=== PATIENT | male | born 1940 | race Caucasian/White ===

== ENCOUNTER 2019-05-01 19:33 | Inpatient (IN) | payer MEDICARE, BC, SELFPAY ==
[2019-05-01] VITALS (22 sets, daily range): BP systolic 82–131; BP diastolic 49–77; PULSE 89–144; RESP 8–28; TEMP 37; O2SAT 84–96
--- NOTE | 2019-05-01 19:35 | W.ED.GENAD ---
Discharge Plan Disposition Patient Disposition: [facility] INPATIENT Condition: Poor Discharge Details Chief Complaint: GenMedical Clinical Impression: Pneumonia Primary Care Provider: Katia Lyn ED Provider: Lynda Matute Home Meds and New Rx's Prescriptions: No Action lisinopril 2.5 MG tablet 2.5 mg PO DAILY RF: 0 Eliquis 5 MG tablet 5 mg PO 0830,1900 Qty: 60 RF: 3 metoprolol tartrate 25 mg tablet 25 mg PO DAILY RF: 0 docusate sodium [Colace] 100 MG capsule 100 mg PO BID PRN PRNRF: 0 Medical Decision Making Patient is a pleasant 79-year-old gentleman, history of atrial fibrillation, chief complaint of weakness. His reports that he has had a URI for the past week but she noted fever yesterday for the first time. She reports that he has been fatigued and is increased weakness in recent days. However, today he was called to the family member's house and was trying to take something out of the snow. Had to sit on the wet snow secondary to his weakness. States that this is quite atypical. Patient has no history of smoking. Patient denies any feeling of malaise at this point. He denies any headache, dizziness, lightheadedness, chest pain or shortness of breath. Has been having a productive cough. Denies any GI upset, no nausea, vomiting or diarrhea. Denies any recent travel. His does report that she went to [place] recently but she nor any of the people that she was around had traveled to any high risk places for coronavirus and she has been back for the past 2 weeks. patient is anticoagulated for his atrial fibrillation, has been taking his Eliquis as prescribed. States he took his metoprolol this morning. No recent changes medication. Patient describes a slow progression of worsening symptoms over the past several days particularly exacerbated yesterday. EKG was reviewed by Dr. Latham. Patient is in rapid narrow complex A. fib. No underlying evidence of STEMI is been noted. On exam, patient is resting comfortably. He is noted to be tachycardic with a pulse rate of 138. He is slightly hypoxic with a O2 93% on room air. He is not tachypneic, no evidence of work of breathing. He is fairly dry mucous membranes. Irregular irregular rhythm on auscultation but no murmurs, rubs or gallops appreciated. He does have crackles fairly diffuse on auscultation of lung hameed, worse on the left side. Patient is afebrile. Abdomen is benign. No lower extremity edema, no calf tenderness. Plan for chest x-ray, imaging. I am concerned the patient may have pneumonia associated with atrial fibrillation with tachycardia. With his weakness and tachycardia, I am concerned for sepsis. CXR reviewed by radiologist: FINDINGS: Lungs: Well inflated. Patchy increased density overlies posterior costophrenic angle region on lateral view. Minimal interstitial and pulmonary vascular prominence. Pleural space: Unremarkable. No pleural effusion. No pneumothorax. Heart/Mediastinum: Mild cardiomegaly. Vasculature: Vascular calcification. Bones/joints: Degenerative changes. IMPRESSION: 1. Lower lobe infiltrate suspected. Side cannot be determined with certainty. 2. There may be minimal pulmonary vascular congestion. 3. Cardiomegaly. Discussed these findings with the patient and his . 1 g of ceftriaxone and 100 of doxycycline has been ordered. He continues to receive hydration. Initial labs reviewed. Patient has a white count of 16, lactate of 3.9. Remaining labs are pending. Urine is just been sent. is now discussing that the patient has been slightly confused over the past 24 hours. She reports that he has been wandering and is not clear where to he is going. This is likely also associated with his acute infection. There is no nuchal rigidity, rash or evidence of [employer] infection. Denies any headache. Patient has an anion gap of 15.1, creatinine 1.6 EGFR 42. Last creatinine was checked in 2016 that I can see, at that time was 0.93. Patient is feeling improved after IV hydration. Heart rate is down from the 140s to the 1 teens. Patient is eating and drinking here. Consulted with Dr. More regarding admission for sepsis. He agrees to admission. [facility] General Date/Time Provider Initiated Documentation: 05/01/19 19:35. Related Data Home Medications Medication Instructions Recorded Confirmed lisinopril 2.5 mg PO DAILY tab-cap 08/01/15 05/01/19 docusate sodium [Colace] 100 mg PO BID PRN PRN cap 09/04/15 05/01/19 apixaban [Eliquis] 5 mg PO 0830,1900 #60 tab 11/11/16 05/01/19 metoprolol tartrate 25 mg tablet 25 mg PO DAILY 10/09/18 05/01/19 Previous Rx's Medication Instructions Recorded docusate sodium [Colace] 100 mg PO BID PRN PRN cap 09/04/15 apixaban [Eliquis] 5 mg PO 0830,1900 #60 tab 11/11/16 Allergies Allergy/AdvReac Type Severity Reaction Status Date / Time No Known Allergies Allergy Unverified 05/01/19 19:47 PFSH Social History Smoking/Tobacco Use Status: Never Alcohol Intake: never Drug use: Never Substance use type: does not use Do you feel safe at home: Yes Do you feel safe in your relationship?: Yes
[2019-05-01] MEDS: Normal Saline 1,000 ML 1000 ML IV ×2 (19:50→21:19)
[2019-05-01 20:00] LABS: Abs Immature Grans 0.06 k/cumm (0.0-0.09); Absolute Basophil Count 0.02 k/cumm (0.0-0.2); Absolute Monocyte Count 1.78 k/cumm (0.11-0.7); Absolute Neutrophil Count 13.55 k/cumm (1.2-6.7); Basophils % 0.1; Eosinophils % 0.1; HCT 40.6 % (40.0-50.0); HGB 13.8 g/dL (13.5-17.5); Immature Grans % 0.4 %; Mean Corpuscular Hemoglobin 30.2 pg (27.0-33.0); Mean Corpuscular Volume 88.8 fL (80-95); Mean Platelet Volume 10.7 fL (8.0-11.0); Monocytes % 11.1; Neutrophils % 84.3; Platelet Count 193 x1000/uL (130-400); RBC 4.57 m/cumm (4.50-6.00); RBC Distribution Width 13.8 % (11.8-14.1); White Blood Cell Count 16.07 k/cumm (4.4-10.8)
[2019-05-01 20:08] LABS: Absolute Eosinophil Count 0.02 k/cumm (0.0-0.7); Absolute Lymphocyte Count 0.64 k/cumm (1.2-3.4)
--- NOTE | 2019-05-01 20:25 | DI.RAD_ITS ---
EXAM: XR CHEST 2V PA LATERAL CLINICAL HISTORY: weakness, cough, fevers TECHNIQUE: 2D digital imaging was performed. COMPARISON: No exams were available for comparison FINDINGS: MEDIASTINUM: Normal. HEART: Mild cardiomegaly. PULMONARY VASCULATURE: Mild pulmonary vascular prominence. LUNGS: Mild interstitial prominence. Opacity in the posterior aspect of the lung base on the lateral view. This may represent a pneumonia. PLEURAL SPACE: No pleural effusion or pneumothorax. BONE:Degenerative changes. OTHER FINDINGS:Normal. IMPRESSION: 1. Opacity in the lower lobe posteriorly seen on the lateral view. This may represent infiltrate/pne umonia. 2. Mild cardiomegaly. 3. Mild pulmonary venous congestion. DATA REPOSITORY: RADIATION DOSE DELIVERED:
[2019-05-01 20:27] LABS: Diff Comment Agrees w/ Instrument; RBC Morphology Normal
--- NOTE | 2019-05-01 20:41 | DI.VRAD_ITS ---
PROCEDURE INFORMATION: Exam: XR Chest, 2 Views Exam date and time: 05/01/2019 8:26 PM Age: 79 years old Clinical indication: Cough and other: Fever; Patient HX: Cough and fever TECHNIQUE: Imaging protocol: XR of the chest Views: 2 views. COMPARISON: No relevant prior studies available. FINDINGS: Lungs: Well inflated. Patchy increased density overlies posterior costophrenic angle region on lateral view. Minimal interstitial and pulmonary vascular prominence. Pleural space: Unremarkable. No pleural effusion. No pneumothorax. Heart/Mediastinum: Mild cardiomegaly. Vasculature: Vascular calcification. Bones/joints: Degenerative changes. IMPRESSION: 1. Lower lobe infiltrate suspected. Side cannot be determined with certainty. 2. There may be minimal pulmonary vascular congestion. 3. Cardiomegaly. Dictated and Authenticated by: Chaim Wing MD. Ordering:ALBINO Howell MD
[2019-05-01 20:49] LABS: Lactate 3.9 mmol/L (0.6-1.4)
[2019-05-01 20:50] LABS: ALT 16 U/L (16-63); AST 17 U/L (15-37); Albumin 3.6 g/dL (3.4-5.0); Alkaline Phosphatase 66 U/L (46-116); Anion Gap 15.1 mmol/L (3-11); BUN 26 mg/dL (7-18); Bilirubin, Total 1.1 mg/dL (0.2-1.0); CO2 20.9 mmol/L (21.0-32.0); Calcium 8.3 mg/dL (8.5-10.1); Chloride 98 mmol/L (98-107); Estimated GFR 42.01 (mL/min/1.73m2); Glucose 150 mg/dL (74-106); Magnesium 1.8 mg/dL (1.8-2.4); Potassium 4.2 mmol/L (3.5-5.1); Sodium 134 mmol/L (136-145); Total Protein 6.9 g/dL (6.4-8.2)
[2019-05-01 20:56] LABS: Bilirubin Negative (Negative); Blood Small (Negative); Clarity Clear (Clear); Glucose Negative (Negative); Ketones Trace mg/dL (Negative); Leukocyte Esterase Negative (Negative); Nitrite Negative (Negative); Specific Gravity >= 1.030 (1.005-1.025); Urobilinogen 0.2 EU/dL (Up TO 0.2); pH 5.5 (5-8)
[2019-05-01 21:08] LABS: Bacteria Few HPF (Negative); C & S Indicated? No; Casts Negative LPF (Negative); Crystals Negative HPF (Negative); Epithelial Cells Rare HPF (Negative); Mucus Trace (Negative); Other Cells Negative (Negative); RBC 0-2 HPF (0-2); WBC 0-2 HPF (0-5)
[2019-05-01] MEDS: cefTRIAXone 1 GM/50 ML BAG IVPB (21:18)
[2019-05-01 21:43] LABS: Troponin I < 0.05 ng/Ml (<0.06)
--- NOTE | 2019-05-01 21:43 | HPE_ITS ---
Date of service: 05/01/19 Time of Service: 21:43 Assessment and Plan Assessment and plan (1) Pneumonia: Start date: 05/01/19 Status: Acute Assessment and plan: This is a 79-year-old gentleman who had upper respiratory symptoms with production of green sputum and progressive lower extremity weakness prompting him to go to the ED with discovery of a lower lobe pneumonia on x-ray being most likely left lower lobe. Patient will be treated for community-acquired pneumonia and hydrated because of his generalized weakness and MARLENE. He does have a sepsis syndrome without fever and will be placed in ICU for close monitoring. He did have soft blood pressures in the ED but this has recovered with IV hydration. Qualifiers: Laterality: unspecified laterality Lung location: lower lobe of lung Pneumonia type: due to unspecified organism Qualified Code(s): J18.9 - Pneumonia, unspecified organism (2) Sepsis syndrome: Start date: 05/01/19 Status: Acute Assessment and plan: With generalized weakness and MARLENE, continue fluid support with IV hydration and monitoring. He is a full code. (3) MARLENE (acute kidney injury): Start date: 05/01/19 Status: Acute Assessment and plan: Mild with generalized weakness and low blood pressure. IV hydration and monitor labs. He did have some slight hyponatremia as well which may be secondary to his pneumonia process. (4) Atrial fibrillation with controlled ventricular rate: Status: Chronic Assessment and plan: Cardiac monitoring while assessing and treating his acute pneumonia with sepsis syndrome. Trend troponins which have been negative thus far. Continue outpatient medications with good rate control presently on metoprolol. History of Present Illness History of Present Illness Chief Complaint: Weakness in legs with coughing for 4 to 5 days Narrative: This is a generally healthy 79-year-old gentleman who was walking to his neighbors home when he felt extremely weak in the legs and fell and the slushy snow. He did not have any significant injuries with this fall outside and was not falling inside. He reported to the ED because of progressive weakness in his lower extremities after having cold-like symptoms with a cough for 4 to 5 days with production of green sputum. In the ED he was found to have a lower lobe pneumonia and was started on IV antibiotics for a community-acquired pneumonia. Also he was admitted for IV hydration with some mild hyponatremia and dehydration with his creatinine slightly elevated from baseline. Patient blood pressure was slightly low with a systolic below 100 and he was placed in the ICU because of a sepsis syndrome including tachycardia with tachypnea, elevated white blood cell count and soft blood pressures. He did not have any significant fever in the ED or reported at home. He had no other complaints other than his cough and generalized weakness especially in the lower extremities. He had no GI complaints and no increased peripheral edema. Is fairly physically active and was taking care of his neighbors home when he fell of the slushy snow. Review of Systems Narrative: 13 point review of systems otherwise unrevealing or stable. [facility] Medical History (Updated 05/01/19 @ 21:51 by Sherman Crump) MARLENE (acute kidney injury) (Acute) Atrial fibrillation with controlled ventricular rate (Chronic) Osteoarthritis of left hip (Inactive) Surgical History (Updated 05/02/19 @ 06:47 by Sherman Crump) H/O total hip arthroplasty (Acute) Social History Smoking/Tobacco Use Status: Never Alcohol Intake: never Drug use: Never Substance use type: does not use Do you feel safe at home: Yes Do you feel safe in your relationship?: Yes Meds Home Medications and Allergies Home Medications Medication Instructions Recorded Confirmed Type lisinopril 2.5 mg PO DAILY tab-cap 08/01/15 05/01/19 History docusate sodium [Colace] 100 mg PO BID PRN PRN cap 09/04/15 05/01/19 Rx apixaban [Eliquis] 5 mg PO 0830,1900 #60 tab 11/11/16 05/01/19 Rx metoprolol tartrate 25 mg tablet 25 mg PO DAILY 10/09/18 05/01/19 History Allergies Allergy/AdvReac Type Severity Reaction Status Date / Time No Known Allergies Allergy Unverified 05/01/19 19:47 Exam Narrative Exam Narrative: General: Patient appears appropriate for age in no acute distress and alert and oriented to person place at least. He is lean. HEENT: Normocephalic, face atraumatic. Eyes with pupils equal and reactive light symmetrically and extraocular movement intact. Sclera anicteric. Oropharynx with slightly dry oral mucosa. External ears normal. Neck: Supple without JVD. Back: Stooped posture with no CVA tenderness. Lungs: Coarse inspiratory crackles left base more than right with bronchovesicular breath sounds diffusely, fair aeration and no increased expiratory phase or expiratory wheeze. No dullness to percussion. Heart: Regular rate and rhythm with no appreciable murmurs or gallops. No rubs. Chest: Symmetric movement with inspiration and no tenderness to palpation. Abdomen: Scaphoid contour, soft and nontender to palpation with no palpable hepatosplenomegaly. Bowel sounds positive in all quadrants. Genitalia/rectal: Exam deferred. Extremities: Without clubbing, cyanosis or pitting edema. Good capillary refill lower extremities. Diffuse mild arthritic changes with some muscle atrophy over lower extremities. Skin: Normal color, warm and dry. Actinic changes over sun exposed areas. No rashes noted. Neuro: Cranial nerves II through XII grossly intact, no focalizing motor deficits and no Babinski's. Psych: Normal mood and thought processes, remote memory intact and recent memory grossly intact. Results Imaging Imaging Studies: Exam: XR Chest, 2 Views Exam date and time: 05/01/2019 8:26 PM Age: 79 years old Clinical indication: Cough and other: Fever; Patient HX: Cough and fever TECHNIQUE: Imaging protocol: XR of the chest Views: 2 views. COMPARISON: No relevant prior studies available. FINDINGS: Lungs: Well inflated. Patchy increased density overlies posterior costophrenic angle region on lateral view. Minimal interstitial and pulmonary vascular prominence. Pleural space: Unremarkable. No pleural effusion. No pneumothorax. Heart/Mediastinum: Mild cardiomegaly. Vasculature: Vascular calcification. Bones/joints: Degenerative changes. IMPRESSION: 1. Lower lobe infiltrate suspected. Side cannot be determined with certainty. 2. There may be minimal pulmonary vascular congestion. 3. Cardiomegaly. Dictated and Authenticated by: Chaim Wing MD. Labs Result diagrams: 05/01/19 19:52 05/01/19 19:52 Labs: Laboratory Results - last 24 hr 05/01/19 05/01/19 05/01/19 19:52 19:52 19:52 WBC 16.07 H RBC 4.57 Hgb 13.8 Hct 40.6 MCV 88.8 MCH 30.2 MCHC 34.0 RDW 13.8 Plt Count 193 MPV 10.7 Immature Gran % 0.4 Neutrophils % 84.3 Lymphocytes % 4.0 Monocytes % 11.1 Eosinophils % 0.1 Basophils % 0.1 Absolute Neutrophils 13.55 H Absolute Lymphocytes 0.64 L Absolute Monocytes 1.78 H Absolute Eosinophils 0.02 Absolute Basophils 0.02 Differential Comment Agrees w/ instrument RBC Morphology Normal Sodium 134 L Potassium 4.2 Chloride 98 Carbon Dioxide 20.9 L Anion Gap 15.1 H BUN 26 H Creatinine 1.60 H Estimated GFR/1.73 m2 42.01 Glucose 150 H Lactate 3.9 H* Calcium 8.3 L Magnesium 1.8 Total Bilirubin 1.1 H AST 17 ALT 16 Alkaline Phosphatase 66 Total Protein 6.9 Albumin 3.6 Urine Color Urine Clarity Urine pH Ur Specific [place] Urine Protein Urine Ketones Urine Blood Urine Nitrite Urine Bilirubin Urine Urobilinogen Ur Leukocyte Esterase Urine RBC Urine WBC Ur Epithelial Cells Urine Crystals Urine Bacteria Urine Casts Urine Mucus Urine Other Ur Culture Indicated? Urine Glucose 05/01/19 20:47 WBC RBC Hgb Hct MCV MCH MCHC RDW Plt Count MPV Immature Gran % Neutrophils % Lymphocytes % Monocytes % Eosinophils % Basophils % Absolute Neutrophils Absolute Lymphocytes Absolute Monocytes Absolute Eosinophils Absolute Basophils Differential Comment RBC Morphology Sodium Potassium Chloride Carbon Dioxide Anion Gap BUN Creatinine Estimated GFR/1.73 m2 Glucose Lactate Calcium Magnesium Total Bilirubin AST ALT Alkaline Phosphatase Total Protein Albumin Urine Color Yellow Urine Clarity Clear Urine pH 5.5 Ur Specific [place] >= 1.030 H Urine Protein 100 H Urine Ketones Trace H Urine Blood Small H Urine Nitrite Negative Urine Bilirubin Negative Urine Urobilinogen 0.2 Ur Leukocyte Esterase Negative Urine RBC 0-2 Urine WBC 0-2 Ur Epithelial Cells Rare Urine Crystals Negative Urine Bacteria Few Urine Casts Negative Urine Mucus Trace Urine Other Negative Ur Culture Indicated? No Urine Glucose Negative Last Vital Signs Temp 37.0 C 05/01/19 19:40 Pulse 104 H 05/01/19 21:01 Resp 14 05/01/19 21:01 BP 104/62 05/01/19 21:01 Pulse Ox 92 L 05/01/19 21:01
[2019-05-01] MEDS: DOXYCYCLINE 100 MG in Normal Saline 100 ML IVPB (21:49)
--- NOTE | 2019-05-01 22:23 | NUR.NOTE ---
Nursing Note: Spoke with irrigation supervisor and hospitalist about pt's change in condition (i.e. decreased BP, increased oxygen demand, RR and limited response to IV fluid boluses in HR). Hospitalist agrees to to redirect admission to ICU. Order to be changed by hospitalist. MS aware, irrigation supervisor aware.
[2019-05-01 23:11] LABS: Troponin I < 0.05 ng/Ml (<0.06)
[2019-05-01 23:45] LABS: Bilirubin Negative (Negative); Blood Trace-lysed (Negative); Clarity Clear (Clear); Glucose Negative (Negative); Ketones Negative (Negative); Leukocyte Esterase Negative (Negative); Nitrite Negative (Negative)
[2019-05-02] VITALS (128 sets, daily range): BP systolic 94–140; BP diastolic 55–104; PULSE 71–105; RESP 6–26; TEMP 36.3–37.1; O2SAT 84–100
[2019-05-02] LABS: Bacteria Negative HPF (Negative); C & S Indicated? No; Casts 0-2 Hyaline LPF (Negative); Crystals Negative HPF (Negative); Epithelial Cells Negative HPF (Negative); Mucus Negative (Negative); Other Cells Negative (Negative); RBC 0-2 HPF (0-2); WBC 0-2 HPF (0-5)
[2019-05-02] MEDS: cefTRIAXone 1 GM/50 ML BAG 100 GM (00:48)
[2019-05-02] MEDS: Normal Saline 1,000 ML 250 ML IV ×3 (00:49→09:18)
[2019-05-02 07:11] LABS: HCT 35.7 % (40.0-50.0); HGB 11.8 g/dL (13.5-17.5); Mean Corp. HGB Concentration 33.1 g/dL (32.0-36.0); Mean Corpuscular Hemoglobin 30.1 pg (27.0-33.0); Mean Corpuscular Volume 91.1 fL (80-95); Mean Platelet Volume 11.1 fL (8.0-11.0); Platelet Count 179 x1000/uL (130-400); RBC 3.92 m/cumm (4.50-6.00); White Blood Cell Count 10.77 k/cumm (4.4-10.8)
[2019-05-02 07:40] LABS: ALT 12 U/L (16-63); AST 18 U/L (15-37); Albumin 2.7 g/dL (3.4-5.0); Alkaline Phosphatase 53 U/L (46-116); BUN 19 mg/dL (7-18); Bilirubin, Total 0.6 mg/dL (0.2-1.0); CREATININE 0.98 mg/dL (0.70-1.30); Calcium 7.5 mg/dL (8.5-10.1); Chloride 107 mmol/L (98-107); Glucose 94 mg/dL (74-106); Potassium 3.9 mmol/L (3.5-5.1); Sodium 138 mmol/L (136-145); Total Protein 5.5 g/dL (6.4-8.2)
[2019-05-02 08:06] LABS: Troponin I < 0.06 ng/Ml (<0.06)
[2019-05-02 08:24] LABS: Lactate 0.6 mmol/L (0.6-1.4)
--- NOTE | 2019-05-02 08:40 | PGE_ITS ---
Date of Service Date of service: 05/02/19 Time of Service: 15:42 Assessment and Plan Assessment and plan (1) Sepsis syndrome: Status: Acute Assessment and plan: Due to PNA, present on admission. Improved markedly with IVF, doxycycline, ceftriaxone. No longer requires IVF. Continue empiric abx, await blood culture results. Transfer out of ICU. (2) Pneumonia: Status: Acute Assessment and plan: CAP, present on admission. As above. Qualifiers: Pneumonia type: due to unspecified organism Laterality: unspecified laterality Lung location: lower lobe of lung Qualified Code(s): J18.9 - Pneumonia, unspecified organism (3) MARLENE (acute kidney injury): Status: Resolved Assessment and plan: In setting of sepsis. Resolved with IVF. (4) Atrial fibrillation with controlled ventricular rate: Status: Chronic Assessment and plan: Rate is now controlled. Continue eliquis for anticoagulation. (5) Fluid overload: Status: Acute Assessment and plan: Iatrogenic - will give one dose of PO lasix 20 mg. (6) Lactic acidosis: Status: Resolved Assessment and plan: In setting of sepsis. Resolved with IVF/abx. (7) DVT prophylaxis: Status: Acute Assessment and plan: On therapeutic anticoagulation with eliquis (8) Discharge planning issues: Status: Acute Assessment and plan: Full code. Transfer out of ICU. Expect discharge home tomorrow if blood cx negative. Subjective Subjective Interval history since last seen: Feels much better. Denies dizziness, chest pain, shortness of breath, reports a frog in my throat. Denies n/v. Rhonchi/coarse throughout. Crackles at B bases noted by nursing - IVF stopped in am. No fevers. Flu neg. 96-97% on RA. BP/HR good - will be transferred out of ICU. Exam Narrative Exam Narrative: General: Very pleasant middle-aged male, laying comfortably in bed, A&Ox3 HEENT: EOMI, MMM Heart: Irregularly irregular rhythm, no m/r/g Lungs: coarse breath sounds B; crackles at B bases Abdomen: soft, nontender, nondistended Extremities: +1 edema BLE's, no c/c. Objective Objective Clinical Data: Abnormal lab results 05/01/19 05/01/19 05/01/19 Range/Units 19:52 19:52 19:52 WBC 16.07 H (4.4-10.8) k/cumm RBC (4.50-6.00) m/cumm Hgb (13.5-17.5) g/dL Hct (40.0-50.0) % MPV (8.0-11.0) fL Absolute Neutrophils 13.55 H (1.2-6.7) k/cumm Absolute Lymphocytes 0.64 L (1.2-3.4) k/cumm Absolute Monocytes 1.78 H (0.11-0.7) k/cumm Sodium 134 L (136-145) mmol/L Carbon Dioxide 20.9 L (21.0-32.0) mmol/L Anion Gap 15.1 H (3-11) mmol/L BUN 26 H (7-18) mg/dL Creatinine 1.60 H (0.70-1.30) mg/dL Glucose 150 H (74-106) mg/dL Lactate 3.9 H* (0.6-1.4) mmol/L Calcium 8.3 L (8.5-10.1) mg/dL Total Bilirubin 1.1 H (0.2-1.0) mg/dL ALT (16-63) U/L Total Protein (6.4-8.2) g/dL Albumin (3.4-5.0) g/dL Ur Specific [place] (1.005-1.025) Urine Protein (Negative) mg/dL Urine Ketones (Negative) mg/dL Urine Blood (Negative) Urine Urobilinogen (Up TO 0.2) EU/dL 05/01/19 05/01/19 05/02/19 Range/Units 20:47 23:31 05:30 WBC (4.4-10.8) k/cumm RBC (4.50-6.00) m/cumm Hgb (13.5-17.5) g/dL Hct (40.0-50.0) % MPV (8.0-11.0) fL Absolute Neutrophils (1.2-6.7) k/cumm Absolute Lymphocytes (1.2-3.4) k/cumm Absolute Monocytes (0.11-0.7) k/cumm Sodium (136-145) mmol/L Carbon Dioxide (21.0-32.0) mmol/L Anion Gap (3-11) mmol/L BUN 19 H D (7-18) mg/dL Creatinine (0.70-1.30) mg/dL Glucose (74-106) mg/dL Lactate (0.6-1.4) mmol/L Calcium 7.5 L (8.5-10.1) mg/dL Total Bilirubin (0.2-1.0) mg/dL ALT 12 L (16-63) U/L Total Protein 5.5 L (6.4-8.2) g/dL Albumin 2.7 L (3.4-5.0) g/dL Ur Specific [place] >= 1.030 H (1.005-1.025) Urine Protein 100 H 30 H (Negative) mg/dL Urine Ketones Trace H (Negative) mg/dL Urine Blood Small H Trace-lysed H (Negative) Urine Urobilinogen 1.0 H (Up TO 0.2) EU/dL 05/02/19 Range/Units 05:30 WBC (4.4-10.8) k/cumm RBC 3.92 L (4.50-6.00) m/cumm Hgb 11.8 L (13.5-17.5) g/dL Hct 35.7 L (40.0-50.0) % MPV 11.1 H (8.0-11.0) fL Absolute Neutrophils (1.2-6.7) k/cumm Absolute Lymphocytes (1.2-3.4) k/cumm Absolute Monocytes (0.11-0.7) k/cumm Sodium (136-145) mmol/L Carbon Dioxide (21.0-32.0) mmol/L Anion Gap (3-11) mmol/L BUN (7-18) mg/dL Creatinine (0.70-1.30) mg/dL Glucose (74-106) mg/dL Lactate (0.6-1.4) mmol/L Calcium (8.5-10.1) mg/dL Total Bilirubin (0.2-1.0) mg/dL ALT (16-63) U/L Total Protein (6.4-8.2) g/dL Albumin (3.4-5.0) g/dL Ur Specific [place] (1.005-1.025) Urine Protein (Negative) mg/dL Urine Ketones (Negative) mg/dL Urine Blood (Negative) Urine Urobilinogen (Up TO 0.2) EU/dL Vital Signs Temperature 36.4 C L 05/02/19 04:10 Temperature Source Temporal Artery Scan 05/02/19 04:10 Pulse 78 05/02/19 06:31 Pulse 95 H 05/02/19 06:31 Respiratory Rate 16 05/02/19 06:31 Respiratory Effort 05/02/19 04:10 Respiratory Depth Normal 05/02/19 04:10 Respiratory Pattern Normal 05/02/19 04:10 Blood Pressure 120/71 05/02/19 06:31 Blood Pressure Mean 82 05/02/19 06:31 Blood Pressure Position Sitting 05/01/19 19:40 Pulse Oximetry 95 05/02/19 06:10 Oxygen Delivery Method Nasal Cannula 05/01/19 22:32 Oxygen Flow Rate 2 05/01/19 22:32 Pain Level 0 05/02/19 04:10 Intake & Output 05/01/19 05/01/19 05/02/19 11:59 23:59 11:59 Intake Total 2630 / 2630 1000 / 1000 Output Total 190 / 190 700 / 700 Balance 2440 / 2440 300 / 300 Weight 86.183 kg 86.6 kg Intake: IV 2150 / 2150 1000 / 1000 Oral 480 / 480 Output: Urine 190 / 190 700 / 700 Other: Urine Color Light Maria Fernanda Urine Appearance Clear # Voids 1 Laboratory Results WBC 10.77 k/cumm (4.4-10.8) D 05/02/19 05:30 RBC 3.92 m/cumm (4.50-6.00) L 05/02/19 05:30 Hgb 11.8 g/dL (13.5-17.5) L 05/02/19 05:30 Hct 35.7 % (40.0-50.0) L 05/02/19 05:30 MCV 91.1 fL (80-95) 05/02/19 05:30 MCH 30.1 pg (27.0-33.0) 05/02/19 05:30 MCHC 33.1 g/dL (32.0-36.0) 05/02/19 05:30 RDW 14.0 % (11.8-14.1) 05/02/19 05:30 Plt Count 179 x1000/uL (130-400) 05/02/19 05:30 MPV 11.1 fL (8.0-11.0) H 05/02/19 05:30 Immature Gran % 0.4 % 05/01/19 19:52 Neutrophils % 84.3 05/01/19 19:52 Lymphocytes % 4.0 05/01/19 19:52 Monocytes % 11.1 05/01/19 19:52 Eosinophils % 0.1 05/01/19 19:52 Basophils % 0.1 05/01/19 19:52 Absolute Neutrophils 13.55 k/cumm (1.2-6.7) H 05/01/19 19:52 Absolute Lymphocytes 0.64 k/cumm (1.2-3.4) L 05/01/19 19:52 Absolute Monocytes 1.78 k/cumm (0.11-0.7) H 05/01/19 19:52 Absolute Eosinophils 0.02 k/cumm (0.0-0.7) 05/01/19 19:52 Absolute Basophils 0.02 k/cumm (0.0-0.2) 05/01/19 19:52 Differential Comment Agrees w/ instrument 05/01/19 19:52 RBC Morphology Normal 05/01/19 19:52 Sodium 138 mmol/L (136-145) 05/02/19 05:30 Potassium 3.9 mmol/L (3.5-5.1) 05/02/19 05:30 Chloride 107 mmol/L (98-107) 05/02/19 05:30 Carbon Dioxide 25.0 mmol/L (21.0-32.0) 05/02/19 05:30 Anion Gap 6.0 mmol/L (3-11) 05/02/19 05:30 BUN 19 mg/dL (7-18) H D 05/02/19 05:30 Creatinine 0.98 mg/dL (0.70-1.30) D 05/02/19 05:30 Estimated GFR/1.73 m2 >= 60.00 (mL/min/1.73m2) 05/02/19 05:30 Glucose 94 mg/dL (74-106) D 05/02/19 05:30 Lactate 0.6 mmol/L (0.6-1.4) 05/02/19 08:17 Calcium 7.5 mg/dL (8.5-10.1) L 05/02/19 05:30 Magnesium 1.8 mg/dL (1.8-2.4) 05/01/19 19:52 Total Bilirubin 0.6 mg/dL (0.2-1.0) 05/02/19 05:30 AST 18 U/L (15-37) 05/02/19 05:30 ALT 12 U/L (16-63) L 05/02/19 05:30 Alkaline Phosphatase 53 U/L (46-116) 05/02/19 05:30 Troponin I < 0.06 ng/Ml (<0.06) 05/02/19 05:30 Total Protein 5.5 g/dL (6.4-8.2) L 05/02/19 05:30 Albumin 2.7 g/dL (3.4-5.0) L 05/02/19 05:30 TSH 1.80 uIU/mL (0.36-3.74) 05/02/19 05:30 Urine Color Yellow (Yellow) 05/01/19 23:31 Urine Clarity Clear (Clear) 05/01/19 23:31 Urine pH 6.0 (5-8) 05/01/19 23:31 Ur Specific [place] 1.020 (1.005-1.025) 05/01/19 23:31 Urine Protein 30 mg/dL (Negative) H 05/01/19 23:31 Urine Ketones Negative mg/dL (Negative) 05/01/19 23:31 Urine Blood Trace-lysed (Negative) H 05/01/19 23:31 Urine Nitrite Negative (Negative) 05/01/19 23:31 Urine Bilirubin Negative (Negative) 05/01/19 23:31 Urine Urobilinogen 1.0 EU/dL (Up TO 0.2) H 05/01/19 23:31 Ur Leukocyte Esterase Negative (Negative) 05/01/19 23:31 Urine RBC 0-2 HPF (0-2) 05/01/19 23:31 Urine WBC 0-2 HPF (0-5) 05/01/19 23:31 Ur Epithelial Cells Negative HPF (Negative) 05/01/19 23:31 Urine Crystals Negative HPF (Negative) 05/01/19 23:31 Urine Bacteria Negative HPF (Negative) 05/01/19 23:31 Urine Casts 0-2 hyaline LPF (Negative) 05/01/19 23:31 Urine Mucus Negative (Negative) 05/01/19 23:31 Urine Other Negative (Negative) 05/01/19 23:31 Ur Culture Indicated? No 05/01/19 23:31 Urine Glucose Negative mg/dL (Negative) 05/01/19 23:31
[2019-05-02] MEDS: Metoprolol 25 MG TAB 12.5 MG PO ×2 (08:59→19:39)
[2019-05-02] MEDS: Lisinopril 5 MG TAB 2.5 MG PO (09:00)
[2019-05-02] MEDS: Apixaban 5 MG TAB PO ×2 (09:00→19:39)
[2019-05-02 09:02] LABS: Procalcitonin 0.7 ng/mL
--- NOTE | 2019-05-02 10:09 | PDOC.CMIN ---
- If Service Date Differs Date of service: 05/02/19 Time of Service: 10:09 Care Management Initial Assess REASON FOR HOSPITALIZATION:: Pneumonia PAST MEDICAL HISTORY/PAST SURGICAL HISTORY:: Medical History (Updated 05/01/19 @ 21:51 by Sherman Crump). MARLENE (acute kidney injury) (Acute). Atrial fibrillation with controlled ventricular rate (Chronic). Osteoarthritis of left hip (Inactive). Surgical History (Updated 05/02/19 @ 06:47 by Sherman Crump). H/O total hip arthroplasty (Acute) PREVIOUS FUNCTIONAL STATUS/SOCIAL/FAMILY SUPPORTS:: Darci lives in [place] in [place] with his Kay. They have one daughter who works in [employer]. 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 He is independent at baseline and has been working on fixing up his home. CURRENT FUNCTIONAL STATUS:: Darci was lying in bed when CM met with him. He was pleasant and readily engaged in conversation with CM. Darci shared stories about his travels and career. He states he is feeling a bit better but is very tired today. ADVANCE DIRECTIVES:: None on file, however has completed them. His will bring in a copy. Has patient been provided with information about the portal?: Yes CODE STATUS:: Full Code INSURANCE COVERAGE / FINANCIAL ISSUES:: Medicare. BS CURRENT HOME/COMMUNITY SERVICES/EQUIPMENT:: none PRIMARY CARE PHYSICIAN:: Katia Lyn POTENTIAL DISCHARGE NEEDS:: Follow up with PCP and discharge plan of care PATIENT/FAMILY EDUCATION NEEDS:: Discharge plan, limitations, follow up plan, Ask Me Three. TRANSPORTATION:: via private vehicle with family PLAN:: Darci will likely discharge home with no new services. He will follow up with his PCP and discharge plan of care. Darci will transport via private vehicle with his . CM will continue to support patient, family and discharge planning needs.
[2019-05-02] MEDS: DOXYCYCLINE 100 MG in Normal Saline 100 ML IVPB ×2 (11:01→22:41)
[2019-05-02] MEDS: Normal Saline Flush 10 ML SYR IVP (11:04)
--- NOTE | 2019-05-02 13:45 | IN_ITS ---
Date of service: 05/02/19 Time of Service: 09:30 PT Notes Visit Reasons: LOWER LOBE PNEUMONIA WITH SEPSIS SYNROME Physical Therapy Inpatient Initial Evaluation Date: 05/02/2019 Referring Doctor: Juana Sanabria M.D. PT Orders: PT CONSULT: Limited Ability Precautions: Fall. Standard. Activity as tolerated. Patient Profile/Admitting Diagnosis: Pt is a 79-year-old man that presented to the ER on 05/01/2019 and admitted to the hospital with diagnoses of pneumonia, sepsis, and acute kidney injury. PMHX: Social History/Home Situation: Pt lives at home with his in [place]. No stairs to enter the home. Reports there are 10-12 stairs to get to the second floor where the bedroom is. Equipment Owned/DME: none Subjective: Pt reports that he feels much better today. Notes that he has not had any other falls in the past 12 months. Objective: General Observation: Telemonitor in place. IV line in RUE. Mental Status: alert and oriented x 4 Pain: 0/10 Vital Signs: Follow ambulation HR 92 bpm, RR 24 breaths/minute ROM: Right Upper Extremity: Shoulder Flexion WFL. Shoulder abduction WFL. Elbow flexion WFL. Wrist flexion WFL. Opening and closing of hand WFL. Left Upper Extremity: Shoulder Flexion WFL. Shoulder abduction WFL. Elbow flexion WFL. Wrist flexion WFL. Opening and closing of hand WFL. Right Lower Extremity: Hip flexion WFL. Hip abduction WFL. Knee flexion WFL. Ankle dorsiflexion WFL. Ankle plantarflexion WFL. Left Lower Extremity: Hip flexion WFL. Hip abduction WFL. Knee flexion WFL. Ankle dorsiflexion WFL. Ankle plantarflexion WFL. Strength: Right Upper Extremity: Shoulder flexors 3-/5. Shoulder abductors 3-/5. Elbow flexors 5/5. Elbow extensors 5/5. Risk Control Product Liability Director strong. Left Upper Extremity: Shoulder flexors 5/5. Shoulder abductors 5/5. Elbow flexors 5/5. Elbow extensors 5/5. Risk Control Product Liability Director strong. Right Lower Extremity: Hip flexors 4+/5. Hip abductors 5/5. Knee flexors 4+/5. Knee extensors 5/5. Ankle dorsiflexors 5/5. Ankle plantarflexors 5/5. Left Lower Extremity: Hip flexors 4+/5. Hip abductors 5/5. Knee flexors 4+/5. Knee extensors 5/5. Ankle dorsiflexors 5/5. Ankle plantarflexors 5/5. Reflexes: Patellar 2+ bilaterally, Achilles 2+ bilaterally Sensation: Intact as to pain and pressure on bilateral lower extremities. Bed Mobility/Transfers: Rolling independent Supine to sit independent Sit to supine independent Sit to stand SBA Stand to sit SBA Bed to chair CGA Chair to bed CGA Gait: Pt was able to ambulate 260 feet, full weightbearing, without the use of a front-wheeled walker. CGA provided by PT student. Reciprocal gait pattern. No complaints of chest pain, shortness of breath, dizziness. Stairs: Pt was able to ascend and descend 12 steps with unilateral upper extremity support on the right. SBA provided by PT and PT student. Reciprocal, [id number] gait pattern. No dizziness, loss of balance, SOB. Balance: Static Sitting: Normal Dynamic Sitting: Normal Static Standing: Good Dynamic Standing: Fair Special Tests: Mobility Limitations Standardized Measure [facility]-PAC 6 clicks Basic Mobility Inpatient Short Form: Raw Score: 24 CMS Score: 0% deficit Four-stage balance test: Able to perform narrow base of support, semi-tandem, and tandem stance for greater than 10 seconds. Able to maintain single leg stance on the right for ten seconds, but only able to maintain stance on left for 3 seconds. Informed Consent/Education: Patient instructed in purpose of PT consult and plan of care. Assessment: Pt is a 79-year-old man that presented to the ER on 05/01/2019 and admitted to the hospital with diagnoses of pneumonia, sepsis, and acute kidney injury. Pt presents with impairment level findings and functional limitations as listed below secondary to acute illness. He demonstrated minimal fall risk with the four-stage balance test. Appears to be stable with ambulation and stair negotiation as he does not require an assistive device and no complaints of increase shortness of breath or weakness. He does not require skilled physical therapy at this time however would benefit from regular supervised ambulation while in the hospital setting. Patient presents with clinical signs and symptoms consistent with current/admitting diagnoses that have resulted to mobility limitations and generalized weakness as demonstrated by the following impairment level findings: 1. Impaired standing balance 2. Impaired activity tolerance Impairments are contributing to the following functional limitations: 1. Increased dependence with transfers 2. Increase completion time for mobility ADL performance Patient is [place] 27525 moderate complexity based on the following: History: Pt presents with impairment level findings and functional limitations as listed above. AM-PAC raw score of 24 with deficit of 0%. Examination: Demonstrable impairment in strength, balance, and range of motion with underlying impairments and functional limitations as documented above Presentation: Evolving Decision Makin moderate complexity Goals: N/A. Physical therapy evaluation only. DISCHARGE RECOMMENDATIONS: Discharge to home when medically cleared. Pt would benefit from regular ambulation with supervision while in the hospital setting. TREATMENT CODE/TIME: 20707 x 33 minutes beginning at 9:15 A.M. Thank you very much for this referral. Billy Ulrich, SPT Doctor of Physical Therapy Student [facility] Supervision provided by Michael [facility], PT [facility] [place], [place]
--- NOTE | 2019-05-02 15:20 | W.NUTCONSULT ---
Date of service: 05/02/19 Time of Service: 15:20 Nutritional Consult ASSESSMENT: 79 year old male admitted with PNA, sepsis and MARLENE. BMI wnl for age. Following Heart Healthy Diet with adequate intake. Not considered at nutritional risk at this time. MONITORING AND EVALUATION: po intake, labs, weights monitored daily Time Spent in Nutritional Counseling and Treatment: 0 time spent face to face
[2019-05-02] MEDS: Furosemide 20 MG TAB PO (17:00)
--- NOTE | 2019-05-02 19:30 | NUR.NOTE ---
Nursing Note:1715- pt transferred from icu to [facility] by ambulation with all belongings. cpap in room and VSS. pt eating dinner with .
[2019-05-02] MEDS: cefTRIAXone 2 GM/50 ML BAG IVPB (22:10)
[2019-05-03 00:29] VITALS: BP 152/87; PULSE 91; RESP 17; TEMP 36.8; O2SAT 97
[2019-05-03 03:48] VITALS: BP 152/83; PULSE 81; RESP 17; TEMP 37.1; O2SAT 97
[2019-05-03 07:20] LABS: Abs Immature Grans 0.02 k/cumm (0.0-0.09); Absolute Basophil Count 0.02 k/cumm (0.0-0.2); Absolute Eosinophil Count 0.12 k/cumm (0.0-0.7); Absolute Monocyte Count 1.07 k/cumm (0.11-0.7); Absolute Neutrophil Count 5.89 k/cumm (1.2-6.7); Basophils % 0.2; Eosinophils % 1.5; HCT 39.9 % (40.0-50.0); HGB 13.1 g/dL (13.5-17.5); Immature Grans % 0.2 %; Lymphocytes % 12.3; Mean Corp. HGB Concentration 32.8 g/dL (32.0-36.0); Mean Corpuscular Hemoglobin 29.5 pg (27.0-33.0); Mean Corpuscular Volume 89.9 fL (80-95); Monocytes % 13.2; Neutrophils % 72.6; Platelet Count 218 x1000/uL (130-400); RBC 4.44 m/cumm (4.50-6.00); White Blood Cell Count 8.12 k/cumm (4.4-10.8)
[2019-05-03 07:27] LABS: Anion Gap 8.2 mmol/L (3-11); BUN 13 mg/dL (7-18); CO2 25.8 mmol/L (21.0-32.0); CREATININE 0.98 mg/dL (0.70-1.30); Calcium 8.1 mg/dL (8.5-10.1); Chloride 105 mmol/L (98-107); Glucose 93 mg/dL (74-106); Magnesium 1.9 mg/dL (1.8-2.4); Sodium 139 mmol/L (136-145)
[2019-05-03 07:40] VITALS: BP 149/92; PULSE 91; RESP 17; TEMP 37; O2SAT 97
[2019-05-03] MEDS: Metoprolol 25 MG TAB 12.5 MG PO (08:45)
[2019-05-03] MEDS: Apixaban 5 MG TAB PO (08:51)
[2019-05-03] MEDS: Normal Saline Flush 10 ML SYR IVP (08:51)
[2019-05-03] MEDS: Lisinopril 5 MG TAB 2.5 MG PO (08:51)
[2019-05-03] MEDS: Doxycycline Hyclate 100 MG CAP PO (11:01)
[2019-05-03 11:30] VITALS: BP 146/89; PULSE 76; RESP 17; TEMP 36.9; O2SAT 98
--- NOTE | 2019-05-03 12:51 | W.PM.DS.N ---
Date of service: 05/03/19 Time of Service: 12:51 DS: Diagnosis Discharge Diagnosis (1) Sepsis syndrome: Status: Acute (2) Pneumonia: Status: Acute (3) MARLENE (acute kidney injury): Status: Resolved (4) Atrial fibrillation with controlled ventricular rate: Status: Chronic (5) Fluid overload: Status: Acute (6) Lactic acidosis: Status: Resolved Discharge Plan Disposition Patient Disposition: HOME Condition: Improving Discharge Details Chief Complaint: GenMedical Clinical Impression: Pneumonia Reason For Visit: LOWER LOBE PNEUMONIA WITH SEPSIS SYNROME Admit Date/Time: 05/01/19 21:27 Admit Provider: Sherman Crump Attending Provider: Sherman Crump Primary Care Provider: Katia Lyn ED Provider: Lynda Matute [facility] Course Hospital Course: This is a generally healthy 79-year-old gentleman who was walking to his neighbors home when he felt extremely weak in the legs and fell and the slushy snow. He did not have any significant injuries with this fall outside and was not falling inside. He reported to the ED because of progressive weakness in his lower extremities after having cold-like symptoms with a cough for 4 to 5 days with production of green sputum. In the ED he was found to have a lower lobe pneumonia and was started on IV antibiotics for a community-acquired pneumonia. Also he was admitted for IV hydration with some mild hyponatremia and dehydration with his creatinine slightly elevated from baseline. Patient blood pressure was slightly low with a systolic below 100 and he was placed in the ICU because of a sepsis syndrome including tachycardia with tachypnea, elevated white blood cell count and soft blood pressures. He did not have any significant fever in the ED or reported at home. He had no other complaints other than his cough and generalized weakness especially in the lower extremities. He had no GI complaints and no increased peripheral edema. Is fairly physically active and was taking care of his neighbors home when he fell of the slushy snow. Home Meds and New Rx's Prescriptions: New cefpodoxime 200 mg tablet 200 mg PO BID Qty: 10 RF: 0 doxycycline hyclate 100 mg capsule 100 mg PO BID Qty: 10 RF: 0 Continued lisinopril 2.5 MG tablet 2.5 mg PO DAILY RF: 0 Eliquis 5 MG tablet 5 mg PO 0830,1900 Qty: 60 RF: 3 metoprolol tartrate 25 mg tablet 25 mg PO DAILY RF: 0 docusate sodium [Colace] 100 MG capsule 100 mg PO BID PRN PRNRF: 0 Discharge Instructions Instructions: Bacterial Pneumonia (DC) Additional Instructions: finish antibiotics as directed, even if you feel better continue usual medications drink at least 6-8 glasses of water daily to stay well hydrated Referrals: Katia Lyn [Primary Care Provider] - (primary care within one week) Activity:: Activity as Tolerated Equipment/Supplies:: No Equipment Needed Diet:: As Tolerated Discharge Orders Discharge Orders: Discharge Order (Routine); Ordered 05/03/19 Ordered By: Brenda Parks DS: Summary Status at Discharge Functional status at discharge: independent ambulation Overall status at discharge: patient is progressing back to baseline Mental Status: mental status grossly normal Speech and Movement: speech and movement normal Mood: congruent mood Affect: normal affect Exam Const General: cooperative, healthy appearing (younger than stated age), comfortable, no acute distress and well developed Nutritional Appearance: average body habitus Orientation: alert, awake and oriented x3 Resp Effort & Inspection: normal respiratory effort Auscultation: rhonchi left lower and no wheezes Cardio Rate: regular rate Rhythm: abnormal rhythm irregularly irregular GI Inspection: normal to inspection Skin General skin exam: no rashes or lesions noted Neuro General: alert, awake and oriented x3 Extrem General: normal to inspection, full ROM and no pedal edema Psych Appearance: grossly normal Mental Status: mental status grossly normal Speech and Movement: speech and movement normal Mood: congruent mood Affect: normal affect Attitude: cooperative Thought Process: normal Thought Content: normal Insight: insight good Judgment: judgment good DS: Data Vitals/I&O Vitals and I&O: Vital Signs Temperature 37.0 C 05/03/19 07:40 Temperature Source Tympanic 05/03/19 07:40 Pulse 91 H 05/03/19 07:40 Pulse Rhythm Irregular 05/03/19 08:30 Pulse 79 05/02/19 10:02 Respiratory Rate 17 05/03/19 07:40 Respiratory Effort Non-Labored 05/03/19 08:30 Respiratory Depth Normal 05/03/19 08:30 Respiratory Pattern Normal 05/03/19 08:30 Blood Pressure 149/92 H 05/03/19 07:40 Blood Pressure Mean 107 05/02/19 10:01 Blood Pressure Position Sitting 05/01/19 19:40 Pulse Oximetry 97 05/03/19 07:40 Oxygen Delivery Method Room Air 05/03/19 07:40 Oxygen Flow Rate 0 05/03/19 07:40 Pain Level 0 05/03/19 07:40 Intake & Output 05/02/19 05/03/19 05/03/19 23:59 11:59 23:59 Intake Total 1440 / 3920 480 / 480 Output Total 350 / 1425 Balance 1090 / 2495 480 / 480 Weight 86.4 kg Intake: IV 1200 / 3200 Oral 240 / 720 480 / 480 Output: Urine 350 / 1425 Other: Urine Color Yellow Urine Appearance Clear Clear Urine Odor None Voiding Methods Urinal Data Completed and Pending Labs on day of discharge: Labs from last 24 hours 05/03/19 05/03/19 06:35 06:35 WBC 8.12 RBC 4.44 L Hgb 13.1 L Hct 39.9 L MCV 89.9 MCH 29.5 MCHC 32.8 RDW 14.0 Plt Count 218 MPV 11.0 Immature Gran % 0.2 Neutrophils % 72.6 Lymphocytes % 12.3 Monocytes % 13.2 Eosinophils % 1.5 Basophils % 0.2 Absolute Neutrophils 5.89 Absolute Lymphocytes 1.00 L Absolute Monocytes 1.07 H Absolute Eosinophils 0.12 Absolute Basophils 0.02 Sodium 139 Potassium 4.0 Chloride 105 Carbon Dioxide 25.8 Anion Gap 8.2 BUN 13 D Creatinine 0.98 Estimated GFR/1.73 m2 >= 60.00 Glucose 93 Calcium 8.1 L Magnesium 1.9 Preliminary micro results at discharge 05/02/19 11:08 Sputum Culture - Preliminary Sputum Normal Rebeca 05/01/19 20:15 Blood Culture - Preliminary Blood NO GROWTH 24 HOURS 05/01/19 20:08 Blood Culture - Preliminary Blood NO GROWTH 24 HOURS [facility] Medical History (Updated 05/02/19 @ 15:50 by Juana Sanabria MD) MARLENE (acute kidney injury) (Resolved) Atrial fibrillation with controlled ventricular rate (Chronic) Osteoarthritis of left hip (Inactive) Surgical History (Updated 05/02/19 @ 06:47 by Sherman Crump) H/O total hip arthroplasty (Acute) Social History Smoking/Tobacco Use Status: Never Alcohol Intake: never Drug use: Never Substance use type: does not use Do you feel safe at home: Yes Do you feel safe in your relationship?: Yes
--- NOTE | 2019-05-03 14:24 | CHAPLAIN ---
I visited with Darci and his Kay. Darci said he believes he'll be discharged today. (He was.) He and Kay were very pleasant and easily engaged in a conversation. I explained my role and offered support.
== END 2019-05-03 13:30 | disposition home or self-care (01) | DRG 871 ==
LOC: ER 22:01 → ICU 23:48 → MS 05-02 17:18
PROVIDERS: Internal Medicine; Admitting Provider Family Medicine; Emergency Provider Physician Assistant; PCP Nurse Practitioner Primary Care; Visit Provider Family Medicine
DX: A41.9 Sepsis, unspecified organism (principal); J18.9 Pneumonia, unspecified organism; N17.9 Acute kidney failure, unspecified; E87.1 Hypo-osmolality and hyponatremia; E87.70 Fluid overload, unspecified; E86.0 Dehydration; I48.91 Unspecified atrial fibrillation; Z96.642 Presence of left artificial hip joint; Z79.01 Long term (current) use of anticoagulants
CPT/HCPCS: 36415; 80048; 80053; 84145; 85027; 87040; 87449; 93005; 96361; 96365; 96367; 97162; 99223; 99232; 99239; 99285; 71046; 81003; 81015; 83605; 83735; 84443; 84484; 85025; 87070; 87205; 93010; J0696

== ENCOUNTER 2019-08-09 01:28 | Outpatient (CLI) | payer MEDICARE, BC, SELFPAY ==
--- NOTE | 2019-08-09 12:22 | DI.US_ITS ---
APPROVED REPORT EXAM: Comprehensive 2D, Doppler, and color-flow Echocardiogram Patient Location: Out-Patient Veneer Stapler: Thalia Zambrano RDCS (AE) Indications: Atrial Fibrillation Other Information Study Quality: Adequate Conclusion Left Ventricle : The left ventricle is normal size. The left ventricular systolic function is normal. The left ventricular ejection fraction is within the normal range. Borderline concentric left ventri cular hypertrophy. There is normal LV segmental wall motion. Diastolic function is indeterminate. LVE F is 47%. Right Ventricle : The right ventricle is normal size. The right ventricular systolic function is norm al. The RVSP is 26.1 mmHg. Atria : Left atrium is borderline dilated. Right atrium is borderline dilated. Valves: There are no hemodynamically significant valvular lesions. Great Vessels : IVC is normal in size and collapses >50% with inspiration. Wall motion Left Ventricle The left ventricle is normal size. The left ventricular systolic function is normal. The left ventric ular ejection fraction is within the normal range. Borderline concentric left ventricular hypertrophy . There is normal LV segmental wall motion. Diastolic function is indeterminate. There is no ventricu lar septal defect visualized. LVEF is 47%. Right Ventricle The right ventricle is normal size. The right ventricular systolic function is normal. The RVSP is 26 .1 mmHg. Atria Left atrium is borderline dilated. Right atrium is borderline dilated. The interatrial septum is inta ct with no evidence for an atrial septal defect. Aortic Valve The Aortic valve is sclerotic. Aortic valve is trileaflet. There is no aortic valvular stenosis. Trac e to mild aortic regurgitation. Mitral Valve There is mitral annular calcification. No evidence of mitral valve stenosis. Mild mitral regurgitatio n. Tricuspid Valve The tricuspid valve is normal in structure. There is no tricuspid valve stenosis. Mild tricuspid regu rgitation. Pulmonic Valve The pulmonary valve is normal in structure. There is no pulmonic valvular stenosis. Trace pulmonic re gurgitation. Great Vessels The aortic root is normal in size. The ascending aorta is moderately dilated. Aortic arch is normal i n caliber. IVC is normal in size and collapses >50% with inspiration. Pericardium There is no pericardial effusion. 2D Dimensions IVSD d PLAX 1.23 cm M: 0.6-1.2 LV Vol A2C d MOD 85.6 mL LVPW d PLAX 1.24 cm M: 0.6 - 1.2 LV Vol A4C d MOD 100.2 mL LVID d PLAX 5.24 cm M: 4.2 - 5.8 LA vol/ BSA A2C s A-L 26.4 mL/m2 LVDs 4.00 cm M: 2.5 - 4.0 LA vol/ BSA A4C s A-L 34.4 mL/m2 Ao Root d 3.35 cm M: 3.1 - 3.7 LA Vol/ BSA Biplane s A-L 35.6 mL/m2 RA Area A4C 19.76 cm2 LA Area A4C s MOD 23.63 cm2 RA Vol/ BSA A4C s A-L 22.2 mL/m2 LA Area A2C s MOD 17.52 cm2 Ao Asc Diam d 4.11 cm M: 2.6 - 3.4 LV EF A4C MOD 47.3 % LV EF Teichholz 46.8 % LV EF A2C MOD 47.8 % LVEF (Shepherd's) 47.77 % M: 52 - 72 LV EF Biplane MOD 47.8 % LV Volume 68.20 mL M: 62 - 150 SV 44.76 mL LV Volume Index 31.14 mL/m2 M: 34 - 74 SV Index 20.40 mL/m2 LV Vol Biplane MOD 93.7 mL FS 23.60 % M-Mode TAPSE 2.11 cm (M/F) >1.7 LV Diastology MV E' medial 0.081 (>0.07 m/s) MV E Vmax 0.90 (0.4-1.3 m/s) LV E/e MED 11.00 (<14) MV E' lateral 0.067 (>0.1 m/s) LV E/e LAT 13.45 (<14) MV E/E' medial 11.04 MV E/E' lateral 13.46 Aortic Valve LVOT Area 3.86 cm2 AoV Area Vmax 3.08 cm2 LVOT Vmax 0.63 m/s AoV Area/ BSA (Vmax) 1.41 cm2/m2 LVOT Mean Tello. 0.42 m/s JOSE Mean Tello. 2.77 cm2 LVOT Peak Grad 1.6 mmHg JOSE Mean Tello. Index 1.26 cm2/m2 LVOT Mean Grad 0.8 mmHg AR DT 1841 msec LVOT VTI 0.148 m AR PHT 534 msec LVOT Diam s 2.20 cm AoV Vmax 0.79 m/s Velocity Ratio 0.79 AoV Mean Tello. 0.59 m/s AoV Peak Grad 2.5 mmHg LVOT SV 57.29 mL AoV Mean Grad 1.5 mmHg AoV VTI 0.177 m AoV Area VTI 3.24 cm2 AoV Area/ BSA (VTI) 1.48 cm/m2 Mitral Valve MV DT 228 (160-240 msec) MR Vmax 5.52 m/s MV PHT 66 msec MR VTI 1.598 m MV Area PHT 3.33 cm2 MR Peak Grad 122.1 mmHg MR Mean Grad 88.2 mmHg MR PISA Radius 0.57 cm MR EROA 0.13 cm2 MR Aliasing Velocity 0.35 m/s MR PISA 2.05 cm2 Pulmonary Valve PV Vmax 0.75 (0.5-1.5 m/s) RVOT Peak Gr. 0.81 mmHg PV Peak Grad 2.2 mmHg RVOT Mean Gr. 0.45 mmHg PV Mean Grad 1.3 mmHg RVOT VTI 0.092 m PV VTI 0.131 m RVOT Vmax 0.45 m/s Tricuspid Valve TR Peak Grad 23.1 mmHg TR Vmax 2.41 m/s RA Pressure 3.00 mmHg RVSP (TR) 26.1 mmHg
== END 2019-08-09 01:48 ==
PROVIDERS: PCP Nurse Practitioner Primary Care; Visit Provider Internal Medicine Cardiovascular Disease
DX: I48.91 Unspecified atrial fibrillation (principal); I49.3 Ventricular premature depolarization; I42.2 Other hypertrophic cardiomyopathy; I10 Essential (primary) hypertension
CPT/HCPCS: 93306

== ENCOUNTER → 2019-08-27 13:13 | Outpatient (BNVA) | payer MEDICARE, BC, SELFPAY | PROVIDERS: PCP Nurse Practitioner Primary Care; Referring Provider Nurse Practitioner Primary Care; Visit Provider Internal Medicine Cardiovascular Disease | DX: I42.8 Other cardiomyopathies (principal); I48.20 Chronic atrial fibrillation, unspecified; Z79.01 Long term (current) use of anticoagulants | CPT/HCPCS: 99204; 99215 ==

== ENCOUNTER → 2020-09-02 09:13 | Outpatient (BNVA) | payer MEDICARE, BC, SELFPAY | PROVIDERS: PCP Nurse Practitioner Primary Care; Referring Provider Nurse Practitioner Primary Care; Visit Provider Internal Medicine Cardiovascular Disease | DX: I48.20 Chronic atrial fibrillation, unspecified (principal); I42.8 Other cardiomyopathies; Z79.01 Long term (current) use of anticoagulants | CPT/HCPCS: 99214; 99213 ==

== ENCOUNTER 2022-03-12 06:28 | Day surgery (SDC) | payer OTHER, SELFPAY ==
[2022-03-12 06:47] VITALS: BP 151/95; PULSE 78; RESP 16; TEMP 36.8; O2SAT 98
[2022-03-12] MEDS: Tropicam./Phenyleph. (1/2.5%) 5 ML BTL OS ×3 (06:58→07:12)
--- NOTE | 2022-03-12 07:05 | ANES.PREOP_ITS ---
General Info Date of Service Date Performed: 03/12/22 Height: 6 ft 3 in Weight: 85.5 kg Body Mass Index (BMI): 23.6 Surgical Procedure: Operation Date: 03/12/22 07:40 Proposed Procedure Side Surgeon p Cataract Extraction with IOL Implant Left Matthew Angeles MD Meds Allergies and Home Medications Allergies Allergy/AdvReac Type Severity Reaction Status Date / Time No Known Allergies Allergy Verified 03/12/22 06:42 Home Medication Medication Instructions Recorded docusate sodium 100 mg capsule 100 mg PO BID PRN PRN 09/04/15 (Colace) apixaban 5 mg tablet (Eliquis) 5 mg PO 0830,1900 #60 tabs 11/11/16 metoprolol succinate 25 mg 25 mg PO .nightly #90 tabs 09/02/20 tablet,extended release 24 hr latanoprost 0.005 % eye drops 1 drp ophthalmic (eye) HS 03/09/22 multivitamin 1 tab PO DAILY 03/11/22 Current Visit Medications: Current Medications Generic Name Dose Route Start Last Admin Trade Name Freq PRN Reason Stop Dose Admin Acetaminophen 1,000 mg 03/12/22 06:00 Acetaminophen 500 Mg Tab PO Q4H PRN PRN Miscellaneous Medication 0 ml 03/12/22 06:00 Prednisolone 1%, Moxifloxacin 0.5%, Nepafenac 0.1% 5ml Btl OS DIRECTED [facility] Miscellaneous Medication 0 ml 03/12/22 06:00 03/12/22 06:58 Tropicam./Phenyleph. (1/2.5%) 5 Ml Btl OS 1 drp DIRECTED PRANEETH Administration Tetracaine HCl 0 ml 03/12/22 06:00 Tetracaine 0.5% 4 Ml Btl OS DIRECTED PRANEETH PFSH Active Problems Active Problems: Problem Status Onset Code Pneumonia J18.9 Atrial fibrillation with controlled ventricular rate I48.91 Sepsis syndrome MARLENE (acute kidney injury) N17.9 Fluid overload E87.70 DVT prophylaxis Z29.9 Discharge planning issues Z02.9 Lactic acidosis E87.2 Sepsis A41.9 Nuclear sclerotic cataract of left eye H25.12 Cortical cataract of left eye H26.9 Medical History Medical History Acquired hammer toe bilateral feet Acquired pes planus Benign essential hypertension Central sleep apnea Edema Left inguinal hernia Lewy body dementia signs for self Osteoarthritis of left hip Right inguinal hernia Surgical History Surgical History H/O total hip arthroplasty Tobacco Smoking/Tobacco Use Status: Never Alcohol Alcohol Intake: never Substance Use Substance use: Never Substance use type: other Details: CBD drops HS Vital Signs and Lab Results Vital Signs Most Recent Vital Signs in EMR: Most Recent Vital Signs Temp Pulse Resp BP Pulse Ox 36.8 C 78 16 151/95 H 98 03/12/22 06:47 03/12/22 06:47 03/12/22 06:47 03/12/22 06:47 03/12/22 06:47 Lab Results Blood Type / Crossmatch: No Data to Display Complete Blood Count: No Data to Display Complete Metabolic Panel: No Data to Display Liver Function Panel: No Data to Display Coagulation Panel: No Data to Display Cardiac Panel: No Data to Display Arterial Blood Gas: No Data to Display Venous Blood Gas: No Data to Display Pancreas Panel: No Data to Display Thyroid Panel: No Data to Display Infectious Disease: No Data to Display Blood Cultures: No Data to Display Toxicology Panel: No Data to Display Anesthesia Assessment and Plan Anesthesia History Personal History: No History of Anesthesia Complications Family History: No Family History of Anesthesia Complications Exercise Tolerance Exercise Tolerance: Metabolic Equivalents<4 Pertinent Negatives Pertinent Negatives: No Symptoms of GERD Cardiac & Pulmonary Exam Cardiac Exam: Normal S1/S2 Heart Sounds Pulmonary Exam: Clear Bilateral Breath Sounds Implantable Cardiac Device Does patient have a Pacemaker or an ICD?: No Airway Exam Known Difficult Airway: No Mallampati Class: 2 Mouth Opening: Normal (> 3cm) Thyromental Distance: Greater than 3 cm Neck Range of Motion: Full ROM Neck Circumference: Normal Teeth Condition: Normal Dentition ASA Classification ASA Score: ASA 3 Emergency Case?: No NPO Status NPO Status: NPO Clears >2 hours, Solids >8 hours Anesthesia Plan Resuscitation Status: Full Code Anesthesia Technique: MAC Anesthesia Airway Planned: Natural Airway Monitors Used: Standard Monitors
[2022-03-12 07:16] VITALS: BMI 23.6
[2022-03-12] MEDS: Tetracaine 0.5% 4 ML BTL OS (07:25)
[2022-03-12] MEDS: Lidocaine 2% Jelly 6 ML SYR (07:26)
[2022-03-12] MEDS: Lidocaine 1% Pres-Free 5 ML VIAL (07:34)
[2022-03-12] MEDS: Balanced Salt Soln.-PLUS 500 ML BAG (07:36)
[2022-03-12] MEDS: Duovisc Viscoelastic System EACH 1 EACH (07:37)
[2022-03-12] MEDS: Povidone-Iodine Ophth 30 ML BTL (07:37)
[2022-03-12 07:55] VITALS: BP 145/77; PULSE 77; RESP 16; TEMP 36.5; O2SAT 98
--- NOTE | 2022-03-12 08:01 | W.PM.DSUDISC ---
Date of service: 03/12/22 Time of Service: 08:01 Discharge Plan Disposition Patient Disposition: Home Discharge Details Attending Provider: Matthew Angeles Primary Care Provider: Katia Lyn Home Meds and New Rx's Prescriptions: No Action metoprolol succinate 25 mg tablet extended release 24 hr 25 mg PO .nightly Qty: 90 3RF Eliquis 5 MG tablet 5 mg PO 0830,1900 Qty: 60 3RF docusate sodium [Colace] 100 MG capsule 100 mg PO BID PRN PRN0RF latanoprost 0.005 % drops 1 drp ophthalmic (eye) HS Label Comments: INSTILL 1 DROP IN BOTH EYES AT BEDTIME multivitamin Tablet 1 tab PO DAILY Discharge Instructions Stand Alone Forms: Post-op Topical Cataract, Chase Regalado (DSU) Discharge Orders Discharge Orders: Discharge Order (Routine); Ordered 03/12/22 Ordered By: Matthew Angeles DS: Diagnosis Discharge Diagnosis (1) Nuclear sclerotic cataract of left eye: Status: Acute (2) Cortical cataract of left eye: Status: Acute
--- NOTE | 2022-03-12 08:02 | W.PM.OP ---
Date of service: 03/12/22 Time of Service: 08:02 Operative Note Operative Note DATE OF PROCEDURE: 03/12/22 PRE-OP DIAGNOSIS: Cortical cataract, left eye POST-OP DIAGNOSIS: same PROCEDURE: Cataract extraction using phacoemulsification with intraocular lens implant, left eye SURGEON: Matthew Angeles ANESTHESIA TYPE: Local By Surgeon and MAC Refer to Anesthesia Record PATHOLOGY: none sent COMPLICATIONS: None Patient was transported to: same day Patient's condition: stable Implants: [employer] Tecnis [id number] Indications: Progressive decreased vision due to cataract, left eye Procedure Description: CATARACT SURGERY OPERATIVE REPORT PREOPERATIVE DIAGNOSIS: 1. Nuclear/cortical cataract, left eye POSTOPERATIVE DIAGNOSIS: Same OPERATION: 1. Cataract extraction using phacoemulsification with posterior chamber intraocular lens implant, left eye. IOL: IOL Psychology Professor/Model: [employer] / LOLA Tecnis [id number] IOL Power: + 9.0 diopters IOL Serial Number: [id number] Optic Diameter: 6.0 mm Haptic/Overall Diameter: 13.0 mm PHACO INFO: [facility] with OZil and Active Fluidics Cumulative Dispersed Energy (CDE): 14.67 seconds SURGEON: Matthew Angeles MD, JESUS ANESTHESIA: Monitored A [facility] (MAC), with local sub-tenon's anesthetic infiltration COMPLICATIONS: None SPECIMENS: None INDICATIONS FOR PROCEDURE: The patient is an 82-year-old male with history of diminished visual acuity in his left eye secondary to the development of nuclear/cortical cataract. He is significantly symptomatic that he desires cataract surgery and attempt to improve and maximize his vision. The option of cataract surgery was offered to the patient and he wished to proceed. PROCEDURE: The correct surgical eye was identified and marked as the left eye and the pupil was dilated in the preoperative area using mydriatics and cycloplegics. The dilated pupil size was 6.0 mm. The patient elected to proceed without oral sedation. The patient was brought to the operating room where cardiopulmonary monitoring was instituted and surgical time-out was performed, confirming the correct operative eye and IOL power. Topical anesthesia was administered and ophthalmic povidone-iodine 5% was instilled into the conjunctival fornices. Lidocaine gel was applied to the cornea and the nevin-ocular area was prepped with Betadine 10% solution and draped in the usual sterile fashion for intraocular surgery, including an aperture drape. A Tegaderm transparent film dressing was cut in half and used to cover the lashes and lid margins. Care was taken to sequester the lashes and lid margins under the Tegaderm dressing. A lid speculum was placed between the lids of the operative eye and the Darin Lux[employer] Revalia operating microscope was maneuvered into position. Maya scissors were then used to make a conjunctival buttonhole approximately 6mm posterior to the limbus in the inferonasal quadrant. Blunt dissection was carried out to expose bare sclera, and a blunt-tipped sub-tenon?s anesthesia cannula was introduced and passed posteriorly along the globe where non-preserved plain lidocaine was injected into posterior sub-Tenon?s space. A sideport knife was used to make a paracentesis port superiorly/superiortemporally. Intraocular phenylephrine/lidocaine was injected int the anterior chamber.. The anterior chamber was filled with viscoelastic. A keratome knife was used to construct a 2-plane near-clear corneal tunnel extending 2.0mm into clear cornea temporally. A flap was raised on the anterior capsule and capsulorhexis forceps were used to complete a continuous curvilinear capsulorhexis of 5 5 mm. Balanced salt solution was then used to perform cortical cleaving hydrodissection and nuclear hydrodelineation until the lens could be freely rotated within the capsular bag. The lens nucleus was then disassembled and removed within the capsular bag and iris plane using phacoemulsification. Residual cortical material was removed using the 45-degree angled silicone I/A tip with 0.3mm port. The posterior capsule was carefully polished to remove as much residual lens epithelial cells as safely possible. The capsular bag was then inflated and the anterior chamber deepened with viscoelastic. The lens implant described above was inserted into the capsular bag using the LOLA [place] Injector. A Kuglen hook was used to dial the IOL into position. Residual viscoelastic was then removed first from posterior to the IOL, then from the anterior chamber using the I/A handpiece. The lens implant was noted to center nicely within the capsular bag. The incisions were stromally hydrated, and the anterior chamber was reformed using BSS. Then 0.5cc of moxifloxacin 1.0mg/ml were injected into the capsular bag and anterior chamber. The incisions were checked with a Weck spear and found to be secure. Several drops of ophthalmic povidone-iodine 5% were then applied to the eye followed by two drops of Imprimis combination prednisolone/moxifloxacin/nepafenac solution. The drapes were removed and a clear plastic protective eye shield was placed over the eye. The patient was then returned to Same Day Surgery in stable condition.
--- NOTE | 2022-03-12 08:22 | W.ANESPOSTOP ---
Postoperative Evaluation Date, Time and Location Date Performed: 03/12/22 Time Performed: 08:00 Patient Location: Day Surgery Unit Vital Signs Most Recent Imported Vital Signs: Most Recent Vital Signs Temp Pulse Resp BP Pulse Ox 36.5 C 77 16 145/77 H 98 03/12/22 07:55 03/12/22 07:55 03/12/22 07:55 03/12/22 07:55 03/12/22 07:55 Pain Score Most Recent Pain Score: Most Recent Pain Score Pain Level 0 03/12/22 07:55 Assessment Mental Status: Awake (Alert & Oriented to Patient Baseline) Airway and Respiratory Function: Patent airway with normal (patient baseline) respiratory exam Cardiovascular Function: Hemodynamically Stable Hydration Status: Adequately Hydrated Nausea & Vomiting: No Nausea or Vomiting Pain: Pt. Denies Any Pain Peripheral Nerve Block: Patient did not receive a nerve block
== END 2022-03-12 08:17 | disposition home or self-care (01) ==
LOC: SUR 06:29
PROVIDERS: PCP Nurse Practitioner Primary Care; Visit Provider Ophthalmology
PROC: (CPT 66984; principal; 2022-03-12 07:30)
DX: H25.012 Cortical age-related cataract, left eye (principal)
CPT/HCPCS: 66984; V2632

== ENCOUNTER 2022-03-26 06:21 | Day surgery (SDC) | payer OTHER, BC, SELFPAY ==
[2022-03-26] MEDS: Tropicam./Phenyleph. (1/2.5%) 5 ML BTL OD ×3 (06:52→07:06)
[2022-03-26 06:54] VITALS: BP 142/91; PULSE 76; RESP 20; TEMP 36.7; O2SAT 99
--- NOTE | 2022-03-26 06:58 | ANES.PREOP_ITS ---
General Info Date of Service Date Performed: 03/26/22 Height: 6 ft 3 in Weight: 84.6 kg Body Mass Index (BMI): 23.3 Surgical Procedure: Operation Date: 03/26/22 07:40 Proposed Procedure Side Surgeon p Cataract Extraction with IOL Implant Right Matthew Angeles MD Meds Allergies and Home Medications Allergies Allergy/AdvReac Type Severity Reaction Status Date / Time No Known Allergies Allergy Verified 03/26/22 06:48 Home Medication Medication Instructions Recorded docusate sodium 100 mg capsule 100 mg PO BID PRN PRN 09/04/15 (Colace) apixaban 5 mg tablet (Eliquis) 5 mg PO 0830,1900 #60 tabs 11/11/16 metoprolol succinate 25 mg 25 mg PO .nightly #90 tabs 09/02/20 tablet,extended release 24 hr latanoprost 0.005 % eye drops 1 drp ophthalmic (eye) HS 03/09/22 multivitamin 1 tab PO DAILY 03/11/22 Current Visit Medications: Current Medications Generic Name Dose Route Start Last Admin Trade Name Freq PRN Reason Stop Dose Admin Acetaminophen 1,000 mg 03/26/22 06:00 Acetaminophen 500 Mg Tab PO Q4H PRN PRN Miscellaneous Medication 0 ml 03/26/22 06:00 Prednisolone 1%, Moxifloxacin 0.5%, Nepafenac 0.1% 5ml Btl OD DIRECTED [facility] Miscellaneous Medication 0 ml 03/26/22 06:00 03/26/22 06:57 Tropicam./Phenyleph. (1/2.5%) 5 Ml Btl OD 1 drp DIRECTED PRANEETH Administration Tetracaine HCl 0 ml 03/26/22 06:00 Tetracaine 0.5% 4 Ml Btl OD DIRECTED [facility] PFSH Active Problems Active Problems: Problem Status Onset Code Pneumonia J18.9 Atrial fibrillation with controlled ventricular rate I48.91 Sepsis syndrome MARLENE (acute kidney injury) N17.9 Fluid overload E87.70 DVT prophylaxis Z29.9 Discharge planning issues Z02.9 Lactic acidosis E87.2 Sepsis A41.9 Nuclear sclerotic cataract of left eye H25.12 Cortical cataract of left eye H26.9 Medical History Medical History Acquired hammer toe bilateral feet Acquired pes planus Benign essential hypertension Central sleep apnea Edema Left inguinal hernia Lewy body dementia signs for self Osteoarthritis of left hip Right inguinal hernia Surgical History Surgical History H/O total hip arthroplasty History of cataract surgery Tobacco Smoking/Tobacco Use Status: Never Alcohol Alcohol Intake: never Substance Use Substance use: Never Substance use type: other Details: CBD drops HS Vital Signs and Lab Results Vital Signs Most Recent Vital Signs in EMR: Most Recent Vital Signs Temp Pulse Resp BP Pulse Ox 36.7 C 76 20 142/91 H 99 03/26/22 06:54 03/26/22 06:54 03/26/22 06:54 03/26/22 06:54 03/26/22 06:54 Lab Results Blood Type / Crossmatch: No Data to Display Complete Blood Count: No Data to Display Complete Metabolic Panel: No Data to Display Liver Function Panel: No Data to Display Coagulation Panel: No Data to Display Cardiac Panel: No Data to Display Arterial Blood Gas: No Data to Display Venous Blood Gas: No Data to Display Pancreas Panel: No Data to Display Thyroid Panel: No Data to Display Infectious Disease: No Data to Display Blood Cultures: 2 No Data to Display Toxicology Panel: No Data to Display Imaging and Studies Imaging and Studies Study information below may be from another EMR and interpreted by another provider. Please see original notes in EMR for more complete details. Echocardiogram Summary: Conclusion Left Ventricle : The left ventricle is normal size. The left ventricular systolic function is normal. The left ventricular ejection fraction is within t he normal range. Borderline concentric left ventricular hypertrophy. There is normal LV segmental wall motion. Diastolic function is indeterminate. LVEF is 47%. Right Ventricle : The right ventricle is normal size. The right ventricular systolic function is normal. The RVSP is 26.1 mmHg. Atria : Left atrium is borderline dilated. Right atrium is borderline dilated. Valves: There are no hemodynamically significant valvular lesions. Great Vessels : IVC is normal in size and collapses >50% with inspiration. Wall motion Anesthesia Assessment and Plan Anesthesia History Personal History: No History of Anesthesia Complications Family History: No Family History of Anesthesia Complications Exercise Tolerance Exercise Tolerance: Metabolic Equivalents<4 Pertinent Negatives Pertinent Negatives: No Symptoms of GERD Cardiac & Pulmonary Exam Cardiac Exam: Normal S1/S2 Heart Sounds Pulmonary Exam: Clear Bilateral Breath Sounds Implantable Cardiac Device Does patient have a Pacemaker or an ICD?: No Airway Exam Known Difficult Airway: No Mallampati Class: 2 Mouth Opening: Normal (> 3cm) Thyromental Distance: Greater than 3 cm Neck Range of Motion: Full ROM Neck Circumference: Normal Teeth Condition: Normal Dentition ASA Classification ASA Score: ASA 3 Emergency Case?: No NPO Status NPO Status: NPO Clears >2 hours, Solids >8 hours Anesthesia Plan Resuscitation Status: Full Code Anesthesia Technique: MAC Anesthesia Airway Planned: Natural Airway Monitors Used: Standard Monitors
[2022-03-26 07:01] VITALS: BMI 23.3
--- NOTE | 2022-03-26 07:13 | HPE_ITS ---
Assessment and Plan Assessment and plan (1) Cortical cataract of right eye: Status: Acute Assessment and plan: Assessment: Visually significant cataract of the right eye. Plan: Cataract extraction with lens implantation of the right eye. (2) Nuclear sclerotic cataract of right eye: Status: Acute Assessment and plan: Assessment: Visually significant cataract of the right eye. Plan: Cataract extraction with lens implantation of the right eye. History of Present Illness History of Present Illness Chief Complaint: Progressive decreased vision, right eye Narrative: The patient is an 82-year-old gentleman with history of progressive decreased vision in both eyes at both distance and near. He has a history of myopic astigmatism and moderate bilateral nuclear and cortical cataract. Visual acuity measured 20/50 OD, 20/30 OS. He is significantly symptomatic that he desired cataract surgery and attempt to improve and maximize his vision. He has already undergone cataract surgery in the left eye on 03/12/2022. He now presents for cataract surgery in the right eye. PFSH All Active Problems Cortical cataract of right eye (Acute) Nuclear sclerotic cataract of right eye (Acute) Pneumonia (Acute) Atrial fibrillation with controlled ventricular rate (Chronic) Sepsis syndrome (Acute) Fluid overload (Acute) DVT prophylaxis (Acute) Discharge planning issues (Acute) Sepsis (Acute) Nuclear sclerotic cataract of left eye (Acute) Cortical cataract of left eye (Acute) Medical History Acquired hammer toe bilateral feet Acquired pes planus Benign essential hypertension Central sleep apnea Edema Left inguinal hernia Lewy body dementia signs for self Osteoarthritis of left hip Right inguinal hernia Surgical History H/O total hip arthroplasty History of cataract surgery Social History Smoking/Tobacco Use Status: Never Smoking risk assessment performed?: Yes Alcohol Intake: never Drug use: Never Substance use type: other Details: CBD drops HS Additional Social history: unable to assess [facility] [employer] Allergies and Home Medications Allergies Allergy/AdvReac Type Severity Reaction Status Date / Time No Known Allergies Allergy Verified 03/26/22 06:48 Home Medications Medication Instructions Recorded Confirmed Type docusate sodium 100 mg capsule 100 mg PO BID PRN PRN 09/04/15 03/26/22 Rx (Colace) apixaban 5 mg tablet (Eliquis) 5 mg PO 0830,1900 #60 tabs 11/11/16 03/26/22 Rx metoprolol succinate 25 mg 25 mg PO .nightly #90 tabs 09/02/20 03/26/22 Rx tablet,extended release 24 hr latanoprost 0.005 % eye drops 1 drp ophthalmic (eye) HS 03/09/22 03/26/22 History multivitamin 1 tab PO DAILY 03/11/22 03/26/22 History Exam Eyes Other: Most recent ophthalmic examination revealed corrected visual acuity of 20/50 OD, uncorrected visual acuity of 20/40 OS. Intraocular pressure measured 15 OD, 18 OS. Extraocular motility is normal. Slit-lamp examination is significant for mild cortical with moderate nuclear cataract in the right eye. A well- positioned PCIOL with clear posterior capsule was present in the left eye. Disc cupping of 0.7 OU. Both maculas have trace epiretinal membranes. Peripheral retina and vitreous are normal. Resp Auscultation: clear to auscultation bilaterally Cardio Rate: regular rate Rhythm: regular rhythm Results Last Vital Signs Temp 36.7 C 03/26/22 06:54 Pulse 76 03/26/22 06:54 Resp 20 03/26/22 06:54 BP 142/91 H 03/26/22 06:54 Pulse Ox 99 03/26/22 06:54
[2022-03-26] MEDS: Povidone-Iodine Ophth 30 ML BTL (07:29)
[2022-03-26] MEDS: Lidocaine 2% Jelly 6 ML SYR (07:29)
[2022-03-26] MEDS: Tetracaine 0.5% 4 ML BTL OD (07:29)
[2022-03-26] MEDS: Balanced Salt Soln.-PLUS 500 ML BAG (07:32)
[2022-03-26] MEDS: Duovisc Viscoelastic System EACH 1 EACH (07:32)
--- NOTE | 2022-03-26 07:53 | W.PM.DSUDISC ---
Date of service: 03/26/22 Time of Service: 07:54 Discharge Plan Disposition Patient Disposition: Home Discharge Details Attending Provider: Matthew Angeles Primary Care Provider: Katia Lyn Home Meds and New Rx's Prescriptions: No Action metoprolol succinate 25 mg tablet extended release 24 hr 25 mg PO .nightly Qty: 90 3RF Eliquis 5 MG tablet 5 mg PO 0830,1900 Qty: 60 3RF docusate sodium [Colace] 100 MG capsule 100 mg PO BID PRN PRN0RF latanoprost 0.005 % drops 1 drp ophthalmic (eye) HS Label Comments: INSTILL 1 DROP IN BOTH EYES AT BEDTIME multivitamin Tablet 1 tab PO DAILY Discharge Instructions Stand Alone Forms: Post-op Topical Cataract, Chase Regalado (DSU) Discharge Orders Discharge Orders: Discharge Order (Routine); Ordered 03/26/22 Ordered By: Matthew Angeles DS: Diagnosis Discharge Diagnosis (1) Cortical cataract of right eye: Status: Resolved (2) Nuclear sclerotic cataract of right eye: Status: Resolved
[2022-03-26 07:54] VITALS: BP 148/95; PULSE 72; RESP 16; TEMP 36.5; O2SAT 99
--- NOTE | 2022-03-26 07:55 | W.PM.OP ---
Date of service: 03/26/22 Time of Service: 07:55 Operative Note Operative Note DATE OF PROCEDURE: 03/26/22 PRE-OP DIAGNOSIS: Nuclear/cortical cataract, right eye POST-OP DIAGNOSIS: same PROCEDURE: Cataract extraction using phacoemulsification with intraocular lens implant, right eye SURGEON: Matthew Angeles ANESTHESIA TYPE: Local By Surgeon and MAC Refer to Anesthesia Record ESTIMATED BLOOD LOSS: 0 PATHOLOGY: none sent COMPLICATIONS: None Patient was transported to: same day Patient's condition: stable Implants: Zeferino [employer] Zeferino/LOLA Tecnis [id number] Indications: Progressive visual loss due to cataract, right eye Procedure Description: CATARACT SURGERY OPERATIVE REPORT PREOPERATIVE DIAGNOSIS: 1. Nuclear/cortical cataract, right eye POSTOPERATIVE DIAGNOSIS: Same OPERATION: 1. Cataract extraction using phacoemulsification with posterior chamber intraocular lens implant, right eye. IOL: IOL Bead Wire Insulator/Model: Zeferino [employer] Zeferino / LOLA Tecnis [id number] IOL Power: + 9.5 diopters IOL Serial Number: [id number] Optic Diameter: 6.0mm Haptic/Overall Diameter: 13.0mm PHACO INFO: Darin[employer]conova Therapeuticsurion Vision System with OZil and Active Fluidics Cumulative Dispersed Energy (CDE): 11.12 seconds SURGEON: Matthew Angeles MD, JESUS ANESTHESIA: Monitored Anesthesia Care (MAC), with local sub-tenon's anesthetic infiltration COMPLICATIONS: None SPECIMENS: None INDICATIONS FOR PROCEDURE: The patient is an 82-year-old gentleman with history of diminished visual acuity in both eyes secondary to the development of bilateral nuclear/cortical cataract. He has a history of significant myopic astigmatism. He has already undergone cataract surgery in his left eye and is doing well postoperatively. He now presents for cataract surgery in the right eye. PROCEDURE: The correct surgical eye was identified and marked as the right eye and the pupil was dilated in the preoperative area using mydriatics and cycloplegics. The dilated pupil size was 6.0 mm. The patient elected to proceed without oral sedation. The patient was brought to the operating room where cardiopulmonary monitoring was instituted and surgical time-out was performed, confirming the correct operative eye and IOL power. Topical anesthesia was administered and ophthalmic povidone-iodine 5% was instilled into the conjunctival fornices. Lidocaine gel was applied to the cornea and the nevin-ocular area was prepped with Betadine 10% solution and draped in the usual sterile fashion for intraocular surgery, including an aperture drape. A Tegaderm transparent film dressing was cut in half and used to cover the lashes and lid margins. Care was taken to sequester the lashes and lid margins under the Tegaderm dressing. A lid speculum was placed between the lids of the operative eye and the Darin LuxOR Revalia operating microscope was maneuvered into position. Maya scissors were then used to make a conjunctival buttonhole approximately 6mm posterior to the limbus in the inferonasal quadrant. Blunt dissection was carried out to expose bare sclera, and a blunt-tipped sub-tenon?s anesthesia cannula was introduced and passed posteriorly along the globe where non-preserved plain lidocaine was injected into posterior sub-Tenon?s space. A sideport knife was used to make a paracentesis port inferotemporally. Intraocular phenylephrine/lidocaine was injected into the anterior chamber. The anterior chamber was filled with viscoelastic. A keratome knife was used to construct a 2-plane near-clear corneal tunnel extending 2.0mm into clear cornea superiortemporally. A flap was raised on the anterior capsule and capsulorhexis forceps were used to complete a continuous curvilinear capsulorhexis of 5.0 mm. Balanced salt solution was then used to perform cortical cleaving hydrodissection and nuclear hydrodelineation until the lens could be freely rotated within the capsular bag. The lens nucleus was then disassembled and removed within the capsular bag and iris plane using phacoemulsification. Residual cortical material was removed using the I/A handpiece. The posterior capsule was carefully polished to remove as much residual lens epithelial cells as safely possible. The capsular bag was then inflated and the anterior chamber deepened with viscoelastic. The lens implant described above was inserted into the capsular bag using the LOLA [place] Injector. A Kuglen hook was used to dial the IOL into position. Residual viscoelastic was then removed first from posterior to the IOL, then from the anterior chamber using the I/A handpiece. The lens implant was noted to center nicely within the capsular bag. The incisions were stromally hydrated, and the anterior chamber was reformed using BSS. Then 0.5cc of moxifloxacin 1.0mg/ml were injected into the capsular bag and anterior chamber. The incisions were checked with a Weck spear and found to be secure. Several drops of ophthalmic povidone-iodine 5% were then applied to the eye followed by two drops of Imprimis combination prednisolone/moxifloxacin/nepafenac solution. The drapes were removed and a clear plastic protective eye shield was placed over the eye. The patient was then returned to Same Day Surgery in stable condition.
--- NOTE | 2022-03-26 08:06 | W.ANESPOSTOP ---
Postoperative Evaluation Date, Time and Location Date Performed: 03/26/22 Time Performed: 08:06 Patient Location: Day Surgery Unit Vital Signs Most Recent Imported Vital Signs: Most Recent Vital Signs Temp Pulse Resp BP Pulse Ox 36.5 C 72 16 148/95 H 99 03/26/22 07:54 03/26/22 07:54 03/26/22 07:54 03/26/22 07:54 03/26/22 07:54 Pain Score Most Recent Pain Score: Most Recent Pain Score Pain Level 0 03/26/22 07:54 Assessment Mental Status: Awake (Alert & Oriented to Patient Baseline) Airway and Respiratory Function: Patent airway with normal (patient baseline) respiratory exam Cardiovascular Function: Hemodynamically Stable Hydration Status: Adequately Hydrated Nausea & Vomiting: No Nausea or Vomiting Pain: Pt. Denies Any Pain Peripheral Nerve Block: Patient did not receive a nerve block
== END 2022-03-26 08:16 | disposition home or self-care (01) ==
LOC: SUR 06:22
PROVIDERS: PCP Nurse Practitioner Primary Care; Visit Provider Ophthalmology
PROC: (CPT 66984; principal; 2022-03-26 07:30)
DX: H25.11 Age-related nuclear cataract, right eye (principal)
CPT/HCPCS: 66984; V2632

== ENCOUNTER 2023-02-22 19:55 | Emergency (ER) | payer OTHER, BC, SELFPAY ==
[2023-02-22] VITALS (26 sets, daily range): BP systolic 122–146; BP diastolic 58–91; PULSE 68–97; RESP 16–22; TEMP 37.5–38.1; O2SAT 93–98
--- NOTE | 2023-02-22 20:45 | DI.RAD_ITS ---
Exam(s) XR PORTABLE CHEST AP EXAM: XR PORTABLE CHEST AP CLINICAL HISTORY: Covid positive, cough. TECHNIQUE: 2D digital imaging was performed. COMPARISON: CR,XR XR CHEST 2V PA LATERAL from 05/01/2019 FINDINGS: Single AP portable view. Heart size is upper normal. The mediastinum is not widened. Mild increased markings in both lung hameed but without air bronchograms nor pleural effusions. No s ignificant change compared to 05/01/2019. IMPRESSION: No obvious acute pulmonary findings on this single AP portable view of the chest. Clinically indicat ed follow-up CT scan can be performed for added sensitivity. DATA REPOSITORY: RADIATION DOSE DELIVERED:
--- NOTE | 2023-02-22 20:50 | ED.GENADUL_ITS ---
Discharge Plan Disposition Patient Disposition: Home Condition: Stable Discharge Details Clinical Impression: COVID-19, Pneumonitis Primary Care Provider: Heather Reagan ED Provider: Brittney Woo Home Meds and New Rx's Prescriptions: New doxycycline hyclate 100 mg tablet 100 mg PO BID 7 Days Qty: 14 0RF No Action metoprolol succinate 25 mg tablet extended release 24 hr 25 mg PO .nightly Qty: 90 3RF magnesium hydroxide [Milk of Magnesia] 400 mg/5 mL suspension 5 ml PO DAILY PRN sennosides [Natural Senna Laxative] 8.6 mg tablet 8.6 mg PO DAILY timolol 0.5 % drops 1 drp ophthalmic (eye) BID carbidopa-levodopa [Sinemet] 25-100 mg tablet 1 tab PO BID Qty: 60 5RF Rx Instructions: Take am and noon Eliquis 5 MG tablet 5 mg PO 0830,1900 Qty: 60 3RF docusate sodium [Colace] 100 MG capsule 100 mg PO BID PRN PRN0RF latanoprost 0.005 % drops 1 drp ophthalmic (eye) HS Patient Comments: INSTILL 1 DROP IN BOTH EYES AT BEDTIME multivitamin Tablet 1 tab PO DAILY Discharge Instructions Instructions: Viral Syndrome (ED) Additional Instructions: Please take your previously prescribed medication as directed tomorrow. Take a multivitamin that has zinc and vitamin D. Increase vitamin C. Follow up with primary care provider in 3-5 days. Return to ED sooner if any worsening or concerns. Increase oral fluids. You may consider getting a gjpk-cri-czbkwqe pulse oximeter which you can get at [facility] or [facility] or similar. Return to the ER be seen sooner if the O2 sat drops below 90%. Please take Tylenol or Ibuprofen with food every 4-6 hours as needed for fever. Referrals: Heather Reagan [Primary Care Provider] - 5 days Medical Decision Making 83-year-old male presents to the ER accompanied by family with a chief complaint of testing positive for COVID today. Does have a fever on arrival 100.5 did have ibuprofen 2 hours prior to arrival. Does have a history of atrial fibrillation is on Eliquis. He is going to [facility] an [facility]. He denies any chest pain no productive cough, he does have 1+ pitting edema noted to his bilateral lower extremities which is at patient's baseline. He did not wear his compression stockings today per family. Lungs are clear to auscultation bilaterally. He denies any abdominal pain nausea vomiting diarrhea or any other associated symptoms. His family reports that he was little bit weak prior to arrival upon getting up to the bathroom. They are concerned for pneumonia. Other past medical history includes pancreatitis, inguinal hernia, osteoarthritis hip replacement and sleep apnea. Vital signs are stable O2 sat is 96% on room air. He has no increased work of breathing. No rhonchi wheezes or adventitious sounds on exam. He is mentally at baseline. He reports his only concern is a little cough and feeling chilled. He does present febrile. Tylenol 650 mg p.o. ordered, portable chest x-ray to rule out pneumonia. I did reassure family and patient and discussed home care including multivitamin with zinc vitamin D and vitamin C. And to continue and get the prescription that [facility]. No focal neuro-deficits noted. He is warm to the touch. Chest x-ray shows pneumonitis no significant infiltrate. Patient given doxycycline prescription to treat empirically for history of pneumonia. Instructed on family that they do not need to take it if he improves with the antiviral. And verbalized understanding. Patient remained hemodynamically stable, afebrile at discharge. Imaging Data Radiologic Study: Imaging: X-Ray Radiologist's impression: Clinical indication: Patient HX: Covid positive, cough TECHNIQUE: Imaging protocol: Radiologic exam of the chest. Views: 1 view. COMPARISON: CR XR CHEST 2V PA LATERAL 05/01/2019 8:25 PM FINDINGS: Lungs: Mild ground-glass parenchymal disease is seen overlying right lower lobe. Remainder of the lungs are clear. Pleural spaces: Unremarkable. No pleural effusion. No pneumothorax. Heart/Mediastinum: Unremarkable. No cardiomegaly. Bones/joints: Unremarkable. IMPRESSION: Mild ground-glass parenchymal disease is seen overlying right lower lobe. Findings could represent COVID-19 pneumonitis. This finding is too subtle for definitive characterization and could represent artifact from overlying soft tissues. Thank you for allowing us to participate in the care of your patient. Dictated and Authenticated by: Sergei Lynn MD [facility] General Mode of arrival: ambulatory . Date/Time Provider Initiated Documentation: 02/22/23 20:31 . Limitations to Documentation: no limitations . Information obtained by: patient, RN notes reviewed and old records reviewed . HPI Narrative: 83-year-old male presents to the ER accompanied by family with a chief complaint of testing positive for COVID today. Does have a fever on arrival 100.5 did have ibuprofen 2 hours prior to arrival. Does have a history of atrial fibrillation is on Eliquis. He is going to start an antiviral which [facility]. He denies any chest pain no productive cough, he does have 1+ pitting edema noted to his bilateral lower extremities which is at patient's baseline. He did not wear his compression stockings today per family. Lungs are clear to auscultation bilaterally. He denies any abdominal pain nausea vomiting diarrhea or any other associated symptoms. His family reports that he was little bit weak prior to arrival upon getting up to the bathroom. They are concerned for pneumonia. Other past medical history includes pancreatitis, inguinal hernia, osteoarthritis hip replacement and sleep apnea. Related Data Home Medications Medication Instructions Recorded Confirmed docusate sodium 100 mg capsule 100 mg PO BID PRN PRN 09/04/15 02/22/23 (Colace) apixaban 5 mg tablet (Eliquis) 5 mg PO 0830,1900 #60 tabs 11/11/16 02/22/23 metoprolol succinate 25 mg 25 mg PO .nightly #90 tabs 09/02/20 02/22/23 tablet,extended release 24 hr latanoprost 0.005 % eye drops 1 drp ophthalmic (eye) HS 03/09/22 02/22/23 multivitamin 1 tab PO DAILY 03/11/22 02/22/23 carbidopa 25 mg-levodopa 100 mg 1 tab PO BID #60 tabs 12/20/22 02/22/23 tablet (Sinemet) magnesium hydroxide 400 mg/5 mL 5 ml PO DAILY PRN 12/20/22 02/22/23 oral suspension (Milk of Magnesia) sennosides 8.6 mg tablet (Natural 8.6 mg PO DAILY 12/20/22 02/22/23 Senna Laxative) timolol 0.5 % eye drops 1 drp ophthalmic (eye) BID 12/20/22 02/22/23 doxycycline hyclate 100 mg tablet 100 mg PO BID 7 days #14 tabs 02/22/23 Previous Rx's Medication Instructions Recorded docusate sodium 100 mg capsule 100 mg PO BID PRN PRN 09/04/15 (Colace) apixaban 5 mg tablet (Eliquis) 5 mg PO 0830,1900 #60 tabs 11/11/16 metoprolol succinate 25 mg 25 mg PO .nightly #90 tabs 09/02/20 tablet,extended release 24 hr carbidopa 25 mg-levodopa 100 mg 1 tab PO BID #60 tabs 12/20/22 tablet (Sinemet) doxycycline hyclate 100 mg tablet 100 mg PO BID 7 days #14 tabs 02/22/23 Allergies Allergy/AdvReac Type Severity Reaction Status Date / Time donepezil Allergy Other (See Verified 02/22/23 20:23 Comment) General Stated Complaint: RespSymp RICARDO: 4 Review of Systems All systems reviewed & are unremarkable except as noted in HPI and below Constitutional Constitutional: Reports as per HPI, Reports fever(s), Denies frequent falls, Denies headache(s), Reports lethargy and Reports weakness Eyes Eyes: Denies loss of vision ENT Ears, Nose, Mouth, and Throat: Denies headache(s) and Reports disequilibrium Cardiovascular Cardiovascular: Denies chest pain Respiratory Respiratory: Reports cough, Denies stridor and Denies wheezing Gastrointestinal Gastrointestinal: Denies abdominal pain, Denies diarrhea, Denies nausea and Denies vomiting Neurologic Neurologic: Reports as per HPI, Denies confusion, Denies frequent falls, Denies headache(s), Denies localized weakness, Denies loss of vision, Denies convulsions, Denies tremor(s), Reports disequilibrium and Reports weakness Psychiatric Psychiatric: Denies confusion Allergic/Immunologic Allergic/Immunologic: Denies wheezing PFSH All Active Problems (Updated 02/22/23 @ 22:01 by Brittney Woo NP) Pneumonitis (Acute) COVID-19 (Acute) Lewy body dementia (Acute) signs for self Constipation (Acute) Memory changes (Acute) Parkinsonism (Acute) Pneumonia (Acute) Atrial fibrillation with controlled ventricular rate (Chronic) Sepsis syndrome (Acute) Fluid overload (Acute) DVT prophylaxis (Acute) Discharge planning issues (Acute) Sepsis (Acute) Nuclear sclerotic cataract of left eye (Acute) Cortical cataract of left eye (Acute) Medical History Hx: recurrent pneumonia Controlled atrial fibrillation long-term current use of anticoagulant Sleep apnea Intermittent urinary incontinence Ptosis of eyelid Cataracts, bilateral Right inguinal hernia Left inguinal hernia Benign essential hypertension Edema Acquired hammer toe bilateral feet Acquired pes planus Central sleep apnea Osteoarthritis of left hip Surgical History S/P blepharoplasty History of hip replacement History of inguinal hernia repair, bilateral History of cataract surgery H/O total hip arthroplasty Family History Father Cancer PROSTATE CANCER Leukemia Mother Breast cancer Brother Hypertension Cirrhosis Brother Prostate cancer Social History Smoking/Tobacco Use Status: Never Smoking risk assessment performed?: Yes Alcohol Intake: never Drug use: Never Substance use type: other Details: used to do CBD but stopped when he got dizzy once Household members: spouse Housing: house Number of Children: 1 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 Exam Narrative Exam Narrative: Constitutional: Alert and oriented x3. Appears stated age. Normal body habitus. Head: Normocephalic, no trauma. Eyes: Pupils PERRL, Red reflex noted, EOM's intact. Eyelids symmetrical without lesions, discharge, or swelling. ENT: Bilateral TM's WNL, External ear normal to inspection, no mastoid TTP, swelling, or erythema, Nasal turbinates WNL, no nasal discharge. Normal dentition, Posterior pharynx WNL, no exudate. Chest: RRR, Normal S1, S2, distal pulses intact. Resp: Lungs clear to auscultation bilaterally, no wheezes, rales, or rhonchi. Abdomen: Soft, non-distended, Normoactive bowel sounds all 4 quads. Musculoskeletal: Unable to assess gait 5/5 strength to all four extremities. Does have 1+ pitting edema bilateral lower extremities. Which is at patient's baseline. Skin: No suspicious rashes or lesions. Capillary refill less than 2 sec. Neurologic: Cranial nerves II-XII intact. Alert and oriented x 3. Motor: No deficits noted. Sensory: Intact bilaterally all 4 extremities. Reflexes: DTR's intact bilaterally.. Hematologic/Lymphatic: No ecchymosis, no lymphadenopathy. Course Vital Signs Vital signs: Vital Signs Pulse Oximetry 98 02/22/23 20:19 Temperature 38.1 C H 02/22/23 20:38 Temperature Source Temporal Artery Scan 02/22/23 20:38 Pulse 97 H 02/22/23 20:38 Pulse 95 H 02/22/23 20:31 Respiratory Rate 16 02/22/23 20:38 Respiratory Effort Normal, Non-Labored 02/22/23 20:38 Respiratory Depth Normal 02/22/23 20:38 Blood Pressure 124/90 02/22/23 20:38 Blood Pressure Mean 90 02/22/23 20:31 Blood Pressure Position Supine 02/22/23 20:38 Pulse Oximetry 98 02/22/23 20:38 Oxygen Delivery Method Room Air 02/22/23 20:38 Oxygen Flow Rate 0 02/22/23 20:26 Pain Level 2 02/22/23 20:38 Comment slight headache, took 1 Advil 1 hour ago 02/22/23 20:38
[2023-02-22] MEDS: Acetaminophen 325 MG TAB 650 MG PO (21:02)
--- NOTE | 2023-02-22 21:56 | DI.VRAD_ITS ---
PROCEDURE INFORMATION: Exam: XR Chest Exam date and time: 02/22/2023 9:15 PM Age: 83 years old Clinical indication: Patient HX: Covid positive, cough TECHNIQUE: Imaging protocol: Radiologic exam of the chest. Views: 1 view. COMPARISON: CR XR CHEST 2V PA LATERAL 05/01/2019 8:25 PM FINDINGS: Lungs: Mild ground-glass parenchymal disease is seen overlying right lower lobe. Remainder of the lungs are clear. Pleural spaces: Unremarkable. No pleural effusion. No pneumothorax. Heart/Mediastinum: Unremarkable. No cardiomegaly. Bones/joints: Unremarkable. IMPRESSION: Mild ground-glass parenchymal disease is seen overlying right lower lobe. Findings could represent COVID-19 pneumonitis. This finding is too subtle for definitive characterization and could represent artifact from overlying soft tissues. Dictated and Authenticated by: Sergei Lynn MD. Ordering:BJ Lugo MD
== END 2023-02-22 22:21 | disposition home or self-care (01) ==
PROVIDERS: Emergency Provider Registered Nurse Emergency; PCP Physician Assistant
DX: U07.1 COVID-19 (principal); J98.4 Other disorders of lung
CPT/HCPCS: 99283; 71045; 99284

== ENCOUNTER → 2023-06-08 13:43 | Outpatient (BNVA) | payer MEDICARE, BC, SELFPAY | PROVIDERS: PCP Physician Assistant; Referring Provider Physician Assistant; Visit Provider Psychiatry & Neurology Neurology | DX: R41.3 Other amnesia (principal); G31.83 Neurocognitive disorder with Lewy bodies; F02.80 Dementia in other diseases classified elsewhere, unspecified severity, without behavioral disturbance, psychotic disturbance, mood disturbance, and anxiety; G20.C Parkinsonism, unspecified; K59.00 Constipation, unspecified; R47.1 Dysarthria and anarthria; R49.8 Other voice and resonance disorders | CPT/HCPCS: 99214 ==

== ENCOUNTER 2023-06-22 16:31 | Outpatient (CLI) | payer MEDICARE, BC, SELFPAY ==
[2023-06-23 08:27] LABS: Vitamin B12 493 pg/mL (211-911)
== END 2023-06-22 16:32 | disposition home or self-care (01) ==
LOC: LBO 16:34
PROVIDERS: PCP Physician Assistant; Visit Provider Psychiatry & Neurology Neurology
DX: F02.80 Dementia in other diseases classified elsewhere, unspecified severity, without behavioral disturbance, psychotic disturbance, mood disturbance, and anxiety (principal); G31.83 Neurocognitive disorder with Lewy bodies; R41.3 Other amnesia
CPT/HCPCS: 36415; 82607

== ENCOUNTER 2024-06-21 09:22 | Emergency (ER) | payer OTHER, SELFPAY ==
[2024-06-21 09:56] VITALS: BP 105/59; PULSE 73; RESP 16; TEMP 36.7; O2SAT 99
--- NOTE | 2024-06-21 10:00 | DI.RAD_ITS ---
Exam(s) XR LUMBAR SPINE COMPLETE EXAM: XR LUMBAR SPINE COMPLETE CLINICAL HISTORY: Fall 06/14. TECHNIQUE: 2D digital imaging was performed of the lumbar spine. Five images were obtained. AP, la teral, right oblique, left oblique and L5-S1 spot views were obtained. FINDINGS: BONES: No fracture or destructive lesion. Endplate osteophytes are seen at multiple levels of the lum bar spine. There are degenerative changes of the facets at L4-5 and L5-S1. Portions of a left total hip arthroplasty are visualized. DISKS: Mild disc space narrowing at L4-L5. ALIGNMENT: Lumbar spinal alignment is within normal limits. No spondylolysis or spondylolisthesis. SOFT TISSUE: There is stool seen throughout the colon suggesting constipation. IMPRESSION: 1. No acute fracture or subluxation. 2. Constipation. DATA REPOSITORY: RADIATION DOSE DELIVERED:
--- NOTE | 2024-06-21 10:15 | DI.RAD_ITS ---
Exam(s) XR KNEE LT 3V AP,LAT,KIMBER EXAM: XR KNEE LT 3V AP,LAT,KIMBER CLINICAL HISTORY: Fall, pain. TECHNIQUE: 2D digital imaging was performed of the left knee. Three images were obtained. AP, late ral and PA tunnel views were obtained. COMPARISON: There are no priors for comparison. FINDINGS: BONES: No acute fracture is present. No bony destructive lesion is seen. There is an enthesophyte at the superior patella. JOINTS: There is joint space narrowing in the medial femoral tibial joint. Osteophytes are seen at t he posterior patella. No joint effusion is seen. No loose body. SOFT TISSUE: There is a well-circumscribed osseous density medial to the medial femoral condyle which appears old. Atherosclerotic calcification is present. IMPRESSION: No acute fracture or dislocation. DATA REPOSITORY: RADIATION DOSE DELIVERED:
--- NOTE | 2024-06-21 11:15 | DI.RAD_ITS ---
Exam(s) XR RIBS RT W PA LAT CHEST EXAM: XR RIBS RT W PA LAT CHEST CLINICAL HISTORY: Fall 1 week ago TECHNIQUE: 2D digital imaging was performed.Six images were obtained. COMPARISON: CR,XR XR PORTABLE CHEST AP from 02/22/2023 FINDINGS: MEDIASTINUM: Normal. HEART: Normal. PULMONARY VASCULATURE: Normal. LUNGS: No focal consolidating infiltrates. The lungs are hyperinflated suggesting underlying COPD. PLEURAL SPACE: There is a small right pleural effusion. No left pleural effusion. No pneumothorax. BONE:Normal. RIGHT RIBS: There are mildly displaced fractures of the lateral aspects of the right 6th 7th and 8th ribs. OTHER FINDINGS:Normal. IMPRESSION: 1. No acute pulmonary findings. 2. Mildly displaced fractures involving the lateral aspects of the right 6th, 7th and 8th ribs. 3. Tiny right pleural effusion. 4. No pneumothorax. DATA REPOSITORY: RADIATION DOSE DELIVERED:
--- NOTE | 2024-06-21 11:15 | DI.CT_ITS ---
Exam(s) CT HEAD WO EXAM: CT HEAD WO CLINICAL HISTORY: Fall, increase sleepiness, hx dementia. TECHNIQUE: Imaging Protocol: Axial computed tomography images with coronal and sagittal reformatted images were created and reviewed COMPARISON: No exams were available for comparison FINDINGS: Ventricles and Extra axial spaces: Normal in size and morphology for the patient's age. Hemorrhage: None. Cerebral parenchyma: There are areas of decreased attenuation in the white matter consistent with chr onic microvascular ischemic disease. No acute territorial infarct is seen. Midline shift: None. Brainstem/Cerebellum: Normal. Calvarium: Normal. Visualized Paranasal sinuses/Mastoids: Small mucous retention cysts are seen in the maxillary sinuses . The remaining visualized paranasal sinuses are clear. The mastoid air cells are well pneumatized. Soft Tissues: Unremarkable. IMPRESSION: No acute intracranial process. RADIATION DOSE DELIVERED: 952.79mGy.cm Total DLP DATA REPOSITORY: All CT scans at this facility are submitted to the National Radiology Data Registry (NRDR) Dose Index Registry (DIR) with the [employer] (A[employer]). RADIATION OPTIMIZATION: All CT scans at this facility use at least one of these dose optimization te chniques: automated exposure control; mA and/or kV adjustment per patient size (includes targeted exa ms where dose is matched to clinical indication); or iterative reconstruction.
--- NOTE | 2024-06-21 11:19 | W.ED.GENAD ---
Discharge Plan Disposition Patient Disposition: Home Condition: Stable Discharge Details Clinical Impression: Multiple fractures of ribs of right side Primary Care Provider: Heather Reagan ED Provider: Brittney Woo Home Meds and New Rx's Prescriptions: New lidocaine 5 % adhesive patch,medicated 1 patch topical DAILY Qty: 15 0RF Rx Instructions: leave on most painful area for up to 12 hrs Continued mirabegron [Myrbetriq] 25 mg tablet extended release 24 hr 25 mg PO DAILY metoprolol succinate 25 mg tablet extended release 24 hr 25 mg PO .nightly Qty: 90 3RF magnesium hydroxide [Milk of Magnesia] 400 mg/5 mL suspension 5 ml PO DAILY PRN sennosides [Natural Senna Laxative] 8.6 mg tablet 8.6 mg PO DAILY timolol 0.5 % drops 1 drp ophthalmic (eye) BID tamsulosin 0.4 mg capsule 0.4 mg PO DAILY Qty: 90 3RF carbidopa-levodopa [Sinemet] 25-100 mg tablet 1 tab PO TID Qty: 270 3RF Rx Instructions: Take every 4-5 hours while awake Eliquis 5 MG tablet 5 mg PO 0830,1900 Qty: 60 3RF rivastigmine 13.3 mg/24 hour patch 24 hour 13.3 mg transdermal DAILY Qty: 5 0RF docusate sodium [Colace] 100 MG capsule 100 mg PO BID PRN PRN0RF latanoprost 0.005 % drops 1 drp ophthalmic (eye) HS Patient Comments: INSTILL 1 DROP IN BOTH EYES AT BEDTIME multivitamin Tablet 1 tab PO DAILY Discharge Instructions Instructions: Rib Fracture or Bruised Rib ED Additional Instructions: X-ray of chest shows 3 rib fractures on #[address] is within normal limits. Lower back x-ray and knee x-ray is within normal limits. Please place the lidocaine patches on the right side of the chest for up to 12 hours. Please take Tylenol with food every 4-6 hours as needed for pain and swelling. Follow up with primary care provider in 3-5 days. Return to ED sooner if any worsening shortness of breath, severe pain, productive cough fever or concerns. Thank you for allowing us to care for you today. Referrals: Heather Reagan [Primary Care Provider] - 1 week HPI General Mode of arrival: ambulatory. Date/Time Provider Initiated Documentation: 06/21/24 10:08. Limitations to Documentation: no limitations. Information obtained by: patient, family, RN notes reviewed and old records reviewed. HPI Narrative: 84-year-old male with a past medical history of Lewy body dementia presents to the ER after a mechanical fall on June 14 with complaints of right flank pain, and questionable right or left knee pain. He did report to the target aircraft technician that it was left knee pain however the triage note says right knee pain. Patient was in his bathroom approximately a week ago and fell backwards tripped landing on his right side. He denies loss of consciousness is unsure if he struck his head. Patient sees multiple specialists including neurology for his dementia, does have a history of A-fib, he is on Eliquis, other history of sleep apnea osteoarthritis left hip replacement. He is at baseline for mentation however his family does report that he has had decline that she has noticed over the last couple of months with increased sleepiness during the day. He denies any headache he does endorse some blurry vision. No obvious deformity, crepitus with palpation of the C-spine T or L-spine or thoracic area. Related Data Home Medications ?Medication ?Instructions ?Recorded ?Confirmed docusate sodium 100 mg capsule 100 mg PO BID PRN PRN 09/04/15 03/20/24 (Colace) apixaban 5 mg tablet (Eliquis) 5 mg PO 0830,1900 #60 tabs 11/11/16 03/20/24 metoprolol succinate 25 mg 25 mg PO .nightly #90 tabs 09/02/20 03/20/24 tablet,extended release 24 hr latanoprost 0.005 % eye drops 1 drp ophthalmic (eye) HS 03/09/22 03/20/24 multivitamin 1 tab PO DAILY 03/11/22 03/20/24 magnesium hydroxide 400 mg/5 mL 5 ml PO DAILY PRN 12/20/22 03/20/24 oral suspension (Milk of Magnesia) sennosides 8.6 mg tablet (Natural 8.6 mg PO DAILY 12/20/22 03/20/24 Senna Laxative) timolol 0.5 % eye drops 1 drp ophthalmic (eye) BID 12/20/22 03/20/24 tamsulosin 0.4 mg capsule 0.4 mg PO DAILY #90 caps 09/19/23 03/20/24 carbidopa 25 mg-levodopa 100 mg 1 tab PO TID #270 tabs 11/21/23 03/20/24 tablet (Sinemet) mirabegron 25 mg tablet,extended 25 mg PO DAILY 03/20/24 03/20/24 release 24 hr (Myrbetriq) rivastigmine 13.3 mg/24 hour 13.3 mg transdermal DAILY #5 ea 04/10/24 transdermal patch lidocaine 5 % topical patch 1 patch topical DAILY #15 ea 06/21/24 Previous Rx's ?Medication ?Instructions ?Recorded docusate sodium 100 mg capsule 100 mg PO BID PRN PRN 09/04/15 (Colace) apixaban 5 mg tablet (Eliquis) 5 mg PO 0830,1900 #60 tabs 11/11/16 metoprolol succinate 25 mg 25 mg PO .nightly #90 tabs 09/02/20 tablet,extended release 24 hr tamsulosin 0.4 mg capsule 0.4 mg PO DAILY #90 caps 09/19/23 carbidopa 25 mg-levodopa 100 mg 1 tab PO TID #270 tabs 11/21/23 tablet (Sinemet) rivastigmine 13.3 mg/24 hour 13.3 mg transdermal DAILY #5 ea 04/10/24 transdermal patch lidocaine 5 % topical patch 1 patch topical DAILY #15 ea 06/21/24 Allergies Allergy/AdvReac Type Severity Reaction Status Date / Time donepezil Allergy Other (See Verified 06/21/24 10:01 Comment) General Stated Complaint: Orthopedic RICARDO: 4 Review of Systems All systems reviewed & are unremarkable except as noted in HPI and below ENT Ears, Nose, Mouth, and Throat: Denies neck pain Musculoskeletal Musculoskeletal: Reports as per HPI, Reports back pain, Reports arthralgias and Denies neck pain Exam Narrative Exam Narrative: General: Well Developed, Awake and Alert, conversant. Skin: Warm and Dry HEENT: Head: No palpable deformities, Normocephalic Eyes: Pupils PERRLA, EOM's intact. No periorbital eccymosis or step off Ears: Canal patent. Tympanic membranes are clear . No pierce's sign, no hemptympanum. Nose/Face: Atraumatic. Facial bones nontender to palpation and stable with manipulation. Mouth/Throat: No intraoral trauma. Teeth and mandible are intact. Neck: No midline tenderness, no step off, no deformity to palpation of C-spine. Trachea midline. Chest: No surface trauma. Nontender without crepitus or deformity. Lungs clear to ausculatation bilaterally. Heart: RRR, no rubs, murmurs or gallop. Abdomen: No abrasions, ecchymosis, or surface trauma. Nondistended. Nontender to palpation no guarding, rebound, or rigidity. Pelvis: Nontender to palpation and stable to compression. Femoral pulses strong and equal Extremities: no surface trauma. Sensation intact. Peripheral pulses intact and equal. Neuro: ANO x3, GCS 15, cranial nerves II through XII intact. Motor and sensory exam nonfocal. Reflexes are symmetric. Course Vital Signs Vital signs: Vital Signs Temperature 36.7 C 06/21/24 09:56 Pulse 73 06/21/24 09:56 Respiratory Rate 16 06/21/24 09:56 Blood Pressure 105/59 L 06/21/24 09:56 Pulse Oximetry 99 06/21/24 09:56 Temperature 36.7 C 06/21/24 09:56 Pulse 73 06/21/24 09:56 Respiratory Rate 16 06/21/24 09:56 Blood Pressure 105/59 L 06/21/24 09:56 Pulse Oximetry 99 06/21/24 09:56 Medical Decision Making 84-year-old male with a past medical history of Lewy body dementia presents to the ER after a mechanical fall on June 14 with complaints of right flank pain, and questionable right or left knee pain. He did report to the target aircraft technician that it was left knee pain however the triage note says right knee pain. Patient was in his bathroom approximately a week ago and fell backwards tripped landing on his right side. He denies loss of consciousness is unsure if he struck his head. Patient sees multiple specialists including neurology for his dementia, does have a history of A-fib, he is on Eliquis, other history of sleep apnea osteoarthritis left hip replacement. He is at baseline for mentation however his family does report that he has had decline that she has noticed over the last couple of months with increased sleepiness during the day. He denies any headache he does endorse some blurry vision. No obvious deformity, crepitus with palpation of the C-spine T or L-spine or thoracic area. No pain elicited on exam however patient is a questionable historian due to the dementia. Will CT head do rib series x-ray negative L-spine and knee x-ray. Will give Tylenol. Rib series shows 3 rib fractures on #[address] within normal limits. Will give lidocaine patch. Patient refused Tylenol at this time. Discussed home care observation and strict return instructions to the . She verbalized understanding. Patient discharged in hemodynamically stable condition. This text was generated using [employer] system, please disregard any oddities of phrase or misspellings. Imaging Data Radiologic Study: Imaging: X-Ray Radiologist's impression: CLINICAL HISTORY: Fall 1 week ago TECHNIQUE: 2D digital imaging was performed.Six images were obtained. COMPARISON: CR,XR XR PORTABLE CHEST AP from 02/22/2023 FINDINGS: MEDIASTINUM: Normal. HEART: Normal. PULMONARY VASCULATURE: Normal. LUNGS: No focal consolidating infiltrates. The lungs are hyperinflated suggesting underlying COPD. PLEURAL SPACE: There is a small right pleural effusion. No left pleural effusion. No pneumothorax. BONE:Normal. RIGHT RIBS: There are mildly displaced fractures of the lateral aspects of the right 6th 7th and 8th ribs. OTHER FINDINGS:Normal. IMPRESSION: 1. No acute pulmonary findings. 2. Mildly displaced fractures involving the lateral aspects of the right 6th, 7th and 8th ribs. 3. Tiny right pleural effusion. 4. No pneumothorax. Radiologic Study #2: Imaging: CT Scan Radiologist's impression: EXAM: CT HEAD WO CLINICAL HISTORY: Fall, increase sleepiness, hx dementia. TECHNIQUE: Imaging Protocol: Axial computed tomography images with coronal and sagittal reformatted images were created and reviewed COMPARISON: No exams were available for comparison FINDINGS: Ventricles and Extra axial spaces: Normal in size and morphology for the patient's age. Hemorrhage: None. Cerebral parenchyma: There are areas of decreased attenuation in the white matter consistent with chronic microvascular ischemic disease. No acute territorial infarct is seen. Midline shift: None. Brainstem/Cerebellum: Normal. Calvarium: Normal. Visualized Paranasal sinuses/Mastoids: Small mucous retention cysts are seen in the maxillary sinuses. The remaining visualized paranasal sinuses are clear. The mastoid air cells are well pneumatized. Soft Tissues: Unremarkable. IMPRESSION: No acute intracranial process. Quality:SDOH Health Related Social Needs: No Data to Display PFSH All Active Problems (Updated 06/21/24 @ 12:39 by Brittney Woo NP) Multiple fractures of ribs of right side (Acute) Dysarthria (Acute) hypokinetic Hypophonia (Acute) COVID-19 (Acute) Lewy body dementia (Acute) signs for self Constipation (Acute) Memory changes (Acute) Parkinsonism (Acute) Pneumonia (Acute) Atrial fibrillation with controlled ventricular rate (Chronic) Sepsis syndrome (Acute) Fluid overload (Acute) DVT prophylaxis (Acute) Discharge planning issues (Acute) Sepsis (Acute) Nuclear sclerotic cataract of left eye (Acute) Cortical cataract of left eye (Acute) Medical History Hx: recurrent pneumonia Controlled atrial fibrillation [facility] current use of anticoagulant Sleep apnea Intermittent urinary incontinence Ptosis of eyelid Cataracts, bilateral Right inguinal hernia Left inguinal hernia Benign essential hypertension Edema Acquired hammer toe bilateral feet Acquired pes planus Central sleep apnea Osteoarthritis of left hip Surgical History S/P blepharoplasty History of hip replacement History of inguinal hernia repair, bilateral History of cataract surgery H/O total hip arthroplasty Family History Father Cancer PROSTATE CANCER Leukemia Mother Breast cancer Brother Hypertension Cirrhosis Brother Prostate cancer Social History Smoking/Tobacco Use Status: Never Smoking risk assessment performed?: Yes Alcohol Intake: never Drug use: Never Substance use type: other Details: used to do CBD but stopped when he got dizzy once Household members: spouse Housing: house Number of Children: 1 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
[2024-06-21 12:14] VITALS: BP 145/85; PULSE 73; RESP 16; TEMP 36.9; O2SAT 93
[2024-06-21] MEDS: Lidocaine 5% Patch 1 PATCH TP (12:48)
== END 2024-06-22 07:07 | disposition home or self-care (01) ==
PROVIDERS: Emergency Provider Registered Nurse Emergency; PCP Physician Assistant
DX: S22.41XA Multiple fractures of ribs, right side, initial encounter for closed fracture (principal); J90 Pleural effusion, not elsewhere classified; K59.00 Constipation, unspecified; I48.91 Unspecified atrial fibrillation; I10 Essential (primary) hypertension; G31.83 Neurocognitive disorder with Lewy bodies; F02.80 Dementia in other diseases classified elsewhere, unspecified severity, without behavioral disturbance, psychotic disturbance, mood disturbance, and anxiety; Z79.01 Long term (current) use of anticoagulants; W18.39XA Other fall on same level, initial encounter
CPT/HCPCS: 73562; 99285; 70450; 71046; 71100; 72110; 99284